=== PATIENT | female | born 1985 | race Caucasian/White ===

== ENCOUNTER 2017-01-19 16:10 | Emergency (ER) | payer SELFPAY ==
[~2017-01-19] VITALS: Ht 157.5 cm; Wt 98.4 kg
[2017-01-19 16:16] VITALS: BP 160/85
[2017-01-19] MEDS ORDERED: TRAM-29 PO (16:35)
[2017-01-19] MEDS ORDERED: CLIN-44 PO (16:35)
--- NOTE | 2017-01-19 16:36 | PHYS DOC ---
Past Medical History Past Medical History: Other Additional Past Medical Histor: tachycardia Past Surgical History: Tubal ligation, Other Additional Past Surgical Histo: cyst removal, D/C Alcohol Use: None Drug Use: None Adult General Chief Complaint Chief Complaint: DENTAL PROBLEM [facility] HPI Patient is a 31 year old female presents emergency department stating that she is having right upper dental pain. She states that she has been having pain for the last 2 weeks. She states that within the last 2 days has become unbearable she states that she's been taken ibuprofen for the pain and discomfort without relief. Patient states that she just went to the [facility] area and does not have a dentist. She denies fever, chills or any nausea or vomiting. Review of Systems Review of Systems Constitutional: Denies fever or chills [] Eyes: Denies change in visual acuity, redness, or eye pain [] HENT: Denies nasal congestion or sore throat. C/o dental pain Respiratory: Denies cough or shortness of breath [] Cardiovascular: No additional information not addressed in HPI [] GI: Denies abdominal pain, nausea, vomiting, bloody stools or diarrhea [] : Denies dysuria or hematuria [] Musculoskeletal: Denies back pain or joint pain [] Integument: Denies rash or skin lesions [] Neurologic: Denies headache, focal weakness or sensory changes [] Allergies Allergies Allergies Coded Allergies Type Severity Reaction Last Updated Verified amoxicillin Adverse Reaction Intermediate OTHER 01/19/17 Yes clavulanic acid Adverse Reaction Intermediate Nausea and Vomiting 01/19/17 Yes diclofenac Adverse Reaction Intermediate OTHER 01/19/17 Yes Physical Exam Physical Exam Constitutional: Well developed, well nourished, no acute distress, non-toxic appearance. [] HENT: Normocephalic, atraumatic, bilateral external ears normal, oropharynx moist, no oral exudates, nose normal. Patient with bilateral tympanic membranes appear to be bulging. Patient appears to have teeth that are decayed to the gumline. The gumline on the right appears to be very red and inflamed. Eyes: PERRLA, EOMI, conjunctiva normal, no discharge. [] Neck: Normal range of motion, no tenderness, supple, no stridor. [] Cardiovascular:Heart rate regular rhythm, no murmur [] Lungs & Thorax: Bilateral breath sounds clear to auscultation [] Skin: Warm, dry, no erythema, no rash. [] Back: No tenderness Extremities: No tenderness, no cyanosis, no clubbing, ROM intact, no edema. [] Neurologic: Alert and oriented X 3, normal motor function, normal sensory function, no focal deficits noted. [] Psychologic: Affect normal, judgement normal, mood normal. [] Current Patient Data Vital Signs Vital Signs Date Time Temp Pulse Resp B/P Pulse Ox O2 Delivery O2 Flow Rate FiO2 01/19/17 16:16 98.4 116 18 100 Room Air 98.4 EKG EKG [] Radiology/Procedures Radiology/Procedures [] Course & Med Decision Making Course & Med Decision Making Pertinent Labs and Imaging studies reviewed. (See chart for details) She will be provided with a dentist list. She'll be provided with Ultram to cover her for the next 3 days. She'll be placed on clindamycin 450 mg 2 times a day for the next 10 days. Recommended ibuprofen 800 mg every 8 hours with food stop taking few develop upset stomach. Patient was provided with signs and symptoms to return back to emergency department. Patient agrees with discharge instructions treatment regimens and follow-up recommendations. [] Dragon Disclaimer Dragon Disclaimer This electronic medical record was generated, in whole or in part, using a voice recognition dictation system. Departure Departure Impression: Primary Impression: Pain, dental Additional Impression: Dental abscess Disposition: 01 HOME, SELF-CARE Condition: STABLE Referrals: NO PCP (PCP) Patient Instructions: Dental Abscess, Dental Pain, [id number] Additional Instructions: You have been evaluated for dental pain. Follow-up with dentist as soon as possible. Medications as prescribed. Ultram will cause drowsiness do not take any be alert and oriented. Drink plenty of fluids. Ibuprofen 800 mg every 8 hours with food stop taking few develop an upset stomach. Return back to emergency prior signs and symptoms of become worse. Scripts Tramadol Hcl (Ultram)50 Mg Tablet1 Tab PO Q6HRS #10 TAB Prov:PARK JOHNSTON APRN 01/19/17 Clindamycin Hcl 150 Mg Capsule3 Cap PO TID 10 Days Prov:PARK JOHNSTON APRN 01/19/17 Problem Qualifiers PARK JOHNSTON APRN Jan 19, 2017 16:36
== END 2017-01-19 16:40 | disposition home or self-care (01) ==
LOC: ER 16:10
DX: K04.7 Periapical abscess without sinus (principal); Z88.1 Allergy status to other antibiotic agents; Z88.8 Allergy status to other drugs, medicaments and biological substances
CPT/HCPCS: 99283

== ENCOUNTER 2017-04-14 21:42 | Emergency (ER) | payer SELFPAY ==
[~2017-04-14] VITALS: Ht 157.5 cm; Wt 93.4 kg
[~2017-04-14 21:42] MED LIST: CLIN150C14 PO; TRAM-48 PO
[2017-04-14 21:50] VITALS: BP 176/99
[2017-04-14] MEDS ORDERED: CLIN300C8 PO (22:00)
[2017-04-14] MEDS ORDERED: TRAM50TA PO (22:01)
--- NOTE | 2017-04-14 22:01 | PHYS DOC ---
Past Medical History Past Medical History: Other Additional Past Medical Histor: tachycardia Past Surgical History: Tubal ligation, Other Additional Past Surgical Histo: cyst removal, D/C Alcohol Use: None Drug Use: None Adult General Chief Complaint Chief Complaint: DENTAL PROBLEM HPI HPI Patient is a 31 year old female presents to the emergency department with complaints of dental pain. Patient reports she's had a long-standing history of dental issues. She does not have a dentist. She reports no fever, no difficulty swallowing or phonation. Review of Systems Review of Systems Constitutional: Denies fever or chills [] Eyes: Denies change in visual acuity, redness, or eye pain [] HENT: Denies nasal congestion or sore throat, complaining of dental pain [] Respiratory: Denies cough or shortness of breath [] Cardiovascular: No additional information not addressed in HPI [] GI: Denies abdominal pain, nausea, vomiting, bloody stools or diarrhea [] : Denies dysuria or hematuria [] Musculoskeletal: Denies back pain or joint pain [] Integument: Denies rash or skin lesions [] Neurologic: Denies headache, focal weakness or sensory changes [] Endocrine: Denies polyuria or polydipsia [] Allergies Allergies Allergies Coded Allergies Type Severity Reaction Last Updated Verified amoxicillin Adverse Reaction Intermediate OTHER 01/19/17 Yes clavulanic acid Adverse Reaction Intermediate Nausea and Vomiting 01/19/17 Yes diclofenac Adverse Reaction Intermediate OTHER 01/19/17 Yes Physical Exam Physical Exam Constitutional: Well developed, well nourished, no acute distress, non-toxic appearance. [] HENT: Normocephalic, atraumatic, bilateral external ears normal, oropharynx moist, no oral exudates, dental caries throughout. Right upper gingiva without erythema and swelling, no pointing. Eyes: PERRLA, EOMI, conjunctiva normal, no discharge. [] Neck: Normal range of motion, no tenderness, supple, no stridor. [] Cardiovascular:Heart rate regular rhythm, no murmur [] Lungs & Thorax: Bilateral breath sounds clear to auscultation [] Skin: Warm, dry, no erythema, no rash. [] Neurologic: Alert and oriented X 3, normal motor function, normal sensory function, no focal deficits noted. [] [] EKG EKG [] Radiology/Procedures Radiology/Procedures [] Course & Med Decision Making Course & Med Decision Making Pertinent Labs and Imaging studies reviewed. (See chart for details) [] Dragon Disclaimer Dragon Disclaimer This electronic medical record was generated, in whole or in part, using a voice recognition dictation system. Departure Departure Impression: Primary Impression: Dental abscess Additional Impression: Pain, dental Disposition: 01 HOME, SELF-CARE Condition: STABLE Referrals: NO PCP (PCP) Patient Instructions: Dental Abscess Scripts Tramadol Hcl (TRAMADOL HCL) 50 Mg Tablet 1 TAB PO PRN Q6HRS Y for PAIN, #12 TAB Prov: CLEO TEJEDA APRN 04/14/17 Clindamycin Hcl (CLINDAMYCIN HCL) 300 Mg Capsule 1 CAP PO TID, #30 CAP Prov: CLEO TEJEDA APRN 04/14/17 Problem Qualifiers CLEO TEJEDA APRN Apr 14, 2017 22:01
== END 2017-04-14 22:10 | disposition home or self-care (01) ==
LOC: ER 21:42
DX: K04.7 Periapical abscess without sinus (principal); Z88.1 Allergy status to other antibiotic agents; Z88.8 Allergy status to other drugs, medicaments and biological substances
CPT/HCPCS: 99283

== ENCOUNTER 2017-07-24 20:53 | Emergency (ER) | payer SELFPAY ==
[~2017-07-24] VITALS: Ht 157.5 cm; Wt 95.3 kg
[~2017-07-24 20:53] MED LIST changes: +CLIN300C8 PO; +TRAM50TA PO
[2017-07-24 20:55] VITALS: BP 148/100
[2017-07-24] MEDS ORDERED: SULF1TAB24 PO (21:36)
--- NOTE | 2017-07-24 21:36 | PHYS DOC ---
Past Medical History Past Medical History: Anxiety, Bipolar, Other Additional Past Medical Histor: tachycardia , PTSD, RLS, PANIC DISORDER Past Surgical History: Tubal ligation, Other Additional Past Surgical Histo: cyst removal, D/C Alcohol Use: None Drug Use: None Adult General Chief Complaint Chief Complaint: ABSCESS HPI HPI Patient is a 31 year old female presents to the emergency department stating that she's had a history of pilonidal cyst when she was a teenager. She states that she has an area just below where her incision was that is red very tender to touch. She states that it developed yesterday. Patient denies any drainage or discharge coming from the site. She states her tetanus immunization is not up -to-date. She states she's been taken Tylenol and ibuprofen for the pain and discomfort with minimal relief.] Review of Systems Review of Systems Constitutional: Denies fever or chills [] Eyes: Denies change in visual acuity, redness, or eye pain [] HENT: Denies nasal congestion or sore throat [] Respiratory: Denies cough or shortness of breath [] Cardiovascular: No additional information not addressed in HPI [] GI: Denies abdominal pain, nausea, vomiting, bloody stools or diarrhea [] : Denies dysuria or hematuria [] Musculoskeletal: Denies back pain or joint pain [] Integument: Denies rash or skin lesions. Complains of cyst in the buttocks area. Neurologic: Denies headache, focal weakness or sensory changes [] Endocrine: Denies polyuria or polydipsia [] Allergies Allergies Allergies Coded Allergies Type Severity Reaction Last Updated Verified amoxicillin Adverse Reaction Intermediate OTHER 01/19/17 Yes clavulanic acid Adverse Reaction Intermediate Nausea and Vomiting 01/19/17 Yes diclofenac Adverse Reaction Intermediate OTHER 01/19/17 Yes Physical Exam Physical Exam Constitutional: Well developed, well nourished, no acute distress, non-toxic appearance. [] HENT: Normocephalic, atraumatic, bilateral external ears normal, oropharynx moist, no oral exudates, nose normal. [] Eyes: PERRLA, EOMI, conjunctiva normal, no discharge. [] Neck: Normal range of motion, no tenderness, supple, no stridor. [] Cardiovascular: Patient pink warm and dry Lungs & Thorax: No respiratory distress noted Skin: Warm, dry, no erythema, no rash. Patient with redness noted at the base of the sacral area no drainage or discharge noted. The area that appears to be tender to touch. The area appears to be firm. Extremities: No tenderness, no cyanosis, no clubbing, ROM intact, no edema. [] Neurologic: Alert and oriented X 3, normal motor function, normal sensory function, no focal deficits noted. [] Psychologic: Affect normal, judgement normal, mood normal. [] Current Patient Data Vital Signs Vital Signs Date Time Temp Pulse Resp B/P (MAP) Pulse Ox O2 Delivery O2 Flow Rate FiO2 07/24/17 20:55 98.1 100 18 100 Room Air 98.1 EKG EKG [] Radiology/Procedures Radiology/Procedures [] Course & Med Decision Making Course & Med Decision Making Pertinent Labs and Imaging studies reviewed. (See chart for details) Patient will be updated with a tetanus immunization here in the emergency department. She will also be provided with Ultram here in the emergency department. She'll be provided with a prescription for Bactrim with recommendations for warm moist packs to the area several times a day. Recommended following up with a primary care physician in next 3-5 days. Patient agrees with discharge instructions, treatment regimens and follow-up recommendations. Signs and symptoms to return back to emergency department and been provided to the patient. Dragon Disclaimer Dragon Disclaimer This electronic medical record was generated, in whole or in part, using a voice recognition dictation system. Departure Departure Impression: Primary Impression: Abscess Disposition: 01 HOME, SELF-CARE Condition: STABLE Referrals: NO PCP (PCP) Patient Instructions: Abscess, [id number] Additional Instructions: Keep the area clean and dry. Activity as tolerated. Warm moist packs to the area 5-6 times a day. Tylenol or ibuprofen for pain and discomfort. Ibuprofen 800 mg every 8 hours. Take this medication with food to prevent stomach upset. If he did develop an upset stomach please stopped taking. Medication as prescribed. Follow-up to primary care physician next 3-5 days. Return back to emergency prior signs symptoms of become worse. Scripts Sulfamethoxazole/Trimethoprim (BACTRIM DS TABLET) 1 Each Tablet 1 TAB PO BID, #20 TAB Prov: PARK JOHNSTON APRN 07/24/17 PARK JOHNSTON APRN Jul 24, 2017 21:36
[2017-07-24] MEDS ORDERED: traMADol 50 MG TABLET PO ONE (21:45)
[2017-07-24] MEDS ORDERED: DIPHTH,PERTUSS(ACELL),TET TOX 0.5 ML DISP.SYRIN. VAX IM ONE (22:00)
== END 2017-07-24 21:44 | disposition home or self-care (01) ==
LOC: ER 20:53
DX: L02.31 Cutaneous abscess of buttock (principal); G25.81 Restless legs syndrome; F43.10 Post-traumatic stress disorder, unspecified; F41.9 Anxiety disorder, unspecified; F31.9 Bipolar disorder, unspecified; Z88.1 Allergy status to other antibiotic agents; Z88.8 Allergy status to other drugs, medicaments and biological substances
CPT/HCPCS: 90471; 90715; 99283-25

== ENCOUNTER 2017-08-18 18:10 | Emergency (ER) | payer SELFPAY ==
[~2017-08-18] VITALS: Ht 157.5 cm; Wt 92.1 kg
[~2017-08-18 18:10] MED LIST changes: +SULF1TAB24 PO
[2017-08-18 18:45] VITALS: BP 137/93
[2017-08-18] MEDS ORDERED: AZIT250T6 PO (19:27)
--- NOTE | 2017-08-18 19:27 | PHYS DOC ---
Past Medical History Past Medical History: Anxiety, Bipolar, Other Additional Past Medical Histor: tachycardia , PTSD, RLS, PANIC DISORDER Past Surgical History: Tubal ligation, Other Additional Past Surgical Histo: cyst removal, D/C Alcohol Use: None Drug Use: None Adult General Chief Complaint Chief Complaint: MULTIPLE COMPLAINTS HPI HPI Patient is a 31 year old female who presents ambulatory to the ED. She is complaining of feverish feeling, cough, aches and pains, pain across her anterior and posterior chest. This is been going on for 2 days. She has used her albuterol and also has taken DayQuil and ibuprofen and Tylenol with little relief. She took ibuprofen 800 mg that 4:00 today. Patient has had a similar illness and was diagnosed with "bronchitis" in the past. She has a history of bronchitis but not a history of asthma or COPD. Patient states she has a history of bipolar and PTSD. She is seen at [facility]. She does not have a primary care physician, only mental health. Patient denies vomiting. Denies possibility of . Review of Systems Review of Systems Constitutional: She has felt feverish and hot and cold Eyes: Denies change in visual acuity, redness, or eye pain [] HENT: Denies nasal congestion or sore throat [] Respiratory: As in history of present illness Cardiovascular: She has had pain across her anterior chest that sounds pleuritic in noncardiac GI: Denies abdominal pain, nausea, vomiting, bloody stools or diarrhea [] : Denies dysuria or hematuria [] Musculoskeletal: Denies back pain or joint pain [] Integument: Denies rash or skin lesions [] Neurologic: Denies headache, focal weakness or sensory changes [] All other systems were reviewed and found to be within normal limits, except as documented in this note. Current Medications Current Medications Current Medications Medications (Trade) Dose Ordered Sig/Shashi Start Time Stop Time Status Last Admin Dose Admin Acetaminophen/ Hydrocodone Bitart (Lortab 5/325) 1 tab 1X ONCE 08/18/17 19:30 08/18/17 19:31 DC 08/18/17 19:30 1 TAB Allergies Allergies Allergies Coded Allergies Type Severity Reaction Last Updated Verified amoxicillin Adverse Reaction Intermediate OTHER 01/19/17 Yes clavulanic acid Adverse Reaction Intermediate Nausea and Vomiting 01/19/17 Yes diclofenac Adverse Reaction Intermediate OTHER 4/15/17 Yes Physical Exam Physical Exam Constitutional: Well developed, well nourished, no acute distress, non-toxic appearance. Temp 99.0. Alert, ambulatory, mentating normally, she does have a cough. HENT: Normocephalic, atraumatic, bilateral external ears normal, nose normal. [ ] Eyes: conjunctiva normal, no discharge. [] Neck: Normal range of motion, no stridor. [] Cardiovascular:Heart rate regular rhythm, no murmur [] Lungs & Thorax: Bilateral breath sounds clear to auscultation , no wheezes, good air movement throughout bilaterally Skin: Warm, dry, no erythema, no rash. [] Extremities: No tenderness, no cyanosis, no clubbing, ROM intact, no edema. [] Neurologic: Alert and oriented X 3, normal motor function, no focal deficits noted. [] Current Patient Data Vital Signs Vital Signs Date Time Temp Pulse Resp B/P (MAP) Pulse Ox O2 Delivery O2 Flow Rate FiO2 08/18/17 19:30 18 97 Room Air 08/18/17 18:45 99.0 107 99.0 EKG EKG [] Radiology/Procedures Radiology/Procedures [] Course & Med Decision Making Course & Med Decision Making Pertinent Labs and Imaging studies reviewed. (See chart for details) 31-year-old female with 2 days of feverish, cough, pleuritic sounding chest pain , aches and pains. Her lungs are clear without wheezing and her vital signs are stable. Patient does not have primary care physician and does not have access to easy follow-up. For this reason, we will treat her with a Z-Apollo. She states she can get that filled tomorrow. See instructions for plan. [] Dragon Disclaimer Dragon Disclaimer This electronic medical record was generated, in whole or in part, using a voice recognition dictation system. Departure Departure Impression: Primary Impression: Bronchitis Additional Impression: Pleuritic chest pain Disposition: 01 HOME, SELF-CARE Condition: STABLE Referrals: NO PCP (PCP) Patient Instructions: Acute Bronchitis, [id number] Additional Instructions: Ibuprofen 800 mg every 6-8 hours for fever and pain. Plenty of fluids. Z-Apollo, antibiotics. Get those started as soon as you can. If you get short of breath or feeling worse, return to emergency. Scripts Azithromycin (AZITHROMYCIN TABLET) 250 Mg Tablet 1 PKG PO UD for bronchitis, #6 TAB Prov: RICK SMITH MD 08/18/17 Problem Qualifiers RICK SMITH MD Aug 18, 2017 19:27
[2017-08-18] MEDS ORDERED: HYDROcodone/APAP 5/325MG 1 TAB TABLET PO ONE (19:30)
== END 2017-08-18 19:36 | disposition home or self-care (01) ==
LOC: ER 18:10
DX: J40 Bronchitis, not specified as acute or chronic (principal); R07.81 Pleurodynia; F41.9 Anxiety disorder, unspecified; F31.9 Bipolar disorder, unspecified; F43.10 Post-traumatic stress disorder, unspecified; Z88.1 Allergy status to other antibiotic agents
CPT/HCPCS: 99283

== ENCOUNTER 2017-08-24 15:00 | Emergency (ER) | payer SELFPAY ==
[~2017-08-24] VITALS: Ht 157.5 cm; Wt 92.1 kg
[~2017-08-24 15:00] MED LIST changes: +AZIT250T6 PO
[2017-08-24 15:19] VITALS: BP 137/68
[2017-08-24] MEDS ORDERED: METH4TAB2 PO (15:26)
[2017-08-24] MEDS ORDERED: CYCL10TA2 PO (15:26)
--- NOTE | 2017-08-24 15:26 | PHYS DOC ---
Past Medical History Past Medical History: Anxiety, Bipolar, Other Additional Past Medical Histor: tachycardia , PTSD, RLS, PANIC DISORDER Past Surgical History: Tubal ligation, Other Additional Past Surgical Histo: cyst removal, D/C Alcohol Use: None Drug Use: None Adult General Chief Complaint Chief Complaint: LOWER BACK PAIN OR INJURY HPI HPI Patient is a 31 year old female who presents with female with history of bulging disks who presents today with mild to moderate right low back pain radiating into her buttocks that began today after she slept wrong on a couch last night. Patient denies any loss of bowel bladder function. Denies any pain radiating to bilateral lower extremities. Denies any numbness to her buttocks. Review of Systems Review of Systems Constitutional: Denies fever or chills [] GI: Denies abdominal pain, nausea, vomiting, bloody stools or diarrhea [] : Denies dysuria or hematuria [] Musculoskeletal: Right low back pain radiating to the buttocks. Integument: Denies rash or skin lesions [] Neurologic: Denies headache, focal weakness or sensory changes [] All other systems were reviewed and found to be within normal limits, except as documented in this note. Allergies Allergies Allergies Coded Allergies Type Severity Reaction Last Updated Verified amoxicillin Adverse Reaction Intermediate OTHER 01/19/17 Yes clavulanic acid Adverse Reaction Intermediate Nausea and Vomiting 01/19/17 Yes diclofenac Adverse Reaction Intermediate OTHER 01/19/17 Yes Physical Exam Physical Exam Constitutional: Well developed, well nourished, no acute distress, non-toxic appearance. [] Skin: Warm, dry, no erythema, no rash. [] Back: Diffuse paraspinal muscle tenderness to the right lumbar spine worse on the right SI joint tenderness, no CVA tenderness. [] Extremities: No tenderness, no cyanosis, no clubbing, ROM intact, no edema. [] Neurologic: Alert and oriented X 3, normal motor function, normal sensory function, no focal deficits noted. [] Psychologic: Affect normal, judgement normal, mood normal. [] EKG EKG [] Radiology/Procedures Radiology/Procedures [] Course & Med Decision Making Course & Med Decision Making Pertinent Labs and Imaging studies reviewed. (See chart for details) Patient is in the ED with low back pain. She has history of chronic bulging disks. No known injury today. No cauda equina syndrome symptoms. Patient will be discharged with Medrol Dosepak. Cyclobenzaprine, and provided a pain clinic for follow-up. Dragon Disclaimer Dragon Disclaimer This electronic medical record was generated, in whole or in part, using a voice recognition dictation system. Departure Departure Impression: Primary Impression: Low back pain Disposition: HOME, SELF-CARE Condition: STABLE Referrals: NO PCP (PCP) JOHN COX MD follow up on Saturday Patient Instructions: Back Pain, Adult Additional Instructions: You were seen for low back pain. We highly recommend you contact the pain clinic provided on Saturday and follow-up. You can apply heat or ice to the low back. Scripts Methylprednisolone (MEDROL) 4 Mg Tab.ds.pk 1 PKG PO UD, #1 PKG Prov: LISA GUAMAN SHANTA 08/24/17 Cyclobenzaprine Hcl (CYCLOBENZAPRINE HCL) 10 Mg Tablet 1 TAB PO TID, #30 TAB Prov: LISA GUAMAN SHANTA 08/24/17 Problem Qualifiers Primary Impression: Low back pain Chronicity: acute Back pain laterality: right Sciatica presence: without sciatica Qualified Codes: M54.5 - Low back pain LISA GUAMAN SHANTA Aug 24, 2017 15:26
[2017-08-24] MEDS ORDERED: CYCLOBENZAPRINE 10 MG TABLET. PO ONE (15:30)
[2017-08-24] MEDS ORDERED: HYDROcodone/APAP 5/325MG 1 TAB TABLET PO ONE (15:30)
== END 2017-08-24 15:43 | disposition home or self-care (01) ==
LOC: ER 15:00
DX: M54.5 Low back pain (principal); F43.10 Post-traumatic stress disorder, unspecified; F31.9 Bipolar disorder, unspecified; Z98.51 Tubal ligation status
CPT/HCPCS: 99283

== ENCOUNTER 2017-08-31 21:47 | Emergency (ER) | payer SELFPAY ==
[~2017-08-31] VITALS: Ht 157.5 cm; Wt 92.1 kg
[~2017-08-31 21:47] MED LIST changes: +CYCL10TA2 PO; +METH4TAB2 PO
[2017-08-31] MEDS ORDERED: AZIT250T6 PO (22:02)
[2017-08-31] MEDS ORDERED: BENZ100C PO (22:02)
--- NOTE | 2017-08-31 22:03 | PHYS DOC ---
Past Medical History Past Medical History: Anxiety, Bipolar, Other Additional Past Medical Histor: tachycardia , PTSD, RLS, PANIC DISORDER Past Surgical History: Tubal ligation, Other Additional Past Surgical Histo: cyst removal, D/C Alcohol Use: None Drug Use: None Adult General Chief Complaint Chief Complaint: Congestion HPI HPI Patient is a 31 year old female presents the ED complaining of cough 2 weeks. Patient states she was diagnosed with bronchitis last week but lost her prescription and was unable to get her azithromycin. Complains of sore throat and rhinorrhea. Requesting another prescription of azithromycin. Denies headache , fever, nausea/vomiting, abdominal pain, chest pain or shortness of breath. Review of Systems Review of Systems Constitutional: Denies fever or chills [] Eyes: Denies change in visual acuity, redness, or eye pain [] HENT: Complains of rhinorrhea and sore throat[] Respiratory: Complains of cough. Denies shortness of breath [] Cardiovascular: No additional information not addressed in HPI [] GI: Denies abdominal pain, nausea, vomiting, bloody stools or diarrhea [] : Denies dysuria or hematuria [] Musculoskeletal: Denies back pain or joint pain [] Integument: Denies rash or skin lesions [] Neurologic: Denies headache, focal weakness or sensory changes [] Endocrine: Denies polyuria or polydipsia [] All other systems were reviewed and found to be within normal limits, except as documented in this note. Current Medications Current Medications Current Medications Medications (Trade) Dose Ordered Sig/Shashi Start Time Stop Time Status Last Admin Dose Admin Ceftriaxone Sodium 50 ml @ 100 mls/hr 1X ONCE 08/31/17 23:30 08/31/17 23:55 DC 08/31/17 23:25 100 MLS/HR Sodium Chloride 1,000 ml @ 1,000 mls/hr 1X ONCE 08/31/17 22:30 08/31/17 23:29 DC 08/31/17 22:36 1,000 MLS/HR Tramadol HCl (Ultram) 50 mg 1X ONCE 08/31/17 23:30 08/31/17 23:31 DC 08/31/17 23:25 50 MG Allergies Allergies Allergies Coded Allergies Type Severity Reaction Last Updated Verified amoxicillin Adverse Reaction Intermediate OTHER 01/19/17 Yes clavulanic acid Adverse Reaction Intermediate Nausea and Vomiting 01/19/17 Yes diclofenac Adverse Reaction Intermediate OTHER 01/19/17 Yes Physical Exam Physical Exam Constitutional: Well developed, well nourished, no acute distress, non-toxic appearance. [] HENT: Normocephalic, atraumatic, bilateral external ears normal, oropharynx moist, no oral exudates, MILD PHARYNGEAL ERYTHEMA. nose normal. [] Eyes: PERRLA, EOMI, conjunctiva normal, no discharge. [] Neck: Normal range of motion, no tenderness, supple, no stridor. [] Cardiovascular:Heart rate regular rhythm, no murmur [] Lungs & Thorax: Bilateral breath sounds clear to auscultation [] Abdomen: Bowel sounds normal, soft, no tenderness, no masses, no pulsatile masses. [] Skin: Warm, dry, no erythema, no rash. [] Back: No tenderness, no CVA tenderness. [] Extremities: No tenderness, no cyanosis, no clubbing, ROM intact, no edema. [] Neurologic: Alert and oriented X 3, normal motor function, normal sensory function, no focal deficits noted. [] Psychologic: Affect normal, judgement normal, mood normal. [] Current Patient Data Vital Signs Vital Signs Date Time Temp Pulse Resp B/P (MAP) Pulse Ox O2 Delivery O2 Flow Rate FiO2 08/31/17 23:43 88 17 124/74 (91) 98 Room Air 08/31/17 21:50 99.0 99.0 Lab Values Laboratory Tests Test 08/31/17 22:18 08/31/17 22:19 08/31/17 22:25 Urine Collection Type Unknown Urine Color Yellow Urine Clarity Cloudy Urine pH 7.0 Urine Specific [place] 1.025 Urine Protein Negative mg/dL (NEG-TRACE) Urine Glucose (UA) Negative mg/dL (NEG) Urine Ketones (Stick) Negative mg/dL (NEG) Urine Blood Negative (NEG) Urine Nitrite Negative (NEG) Urine Bilirubin Negative (NEG) Urine Urobilinogen Dipstick 1.0 mg/dL (0.2 mg/dL) Urine Leukocyte Esterase Trace (NEG) Urine RBC Occ /HPF (0-2) Urine WBC Occ /HPF (0-4) Urine Squamous Epithelial Cells Many /LPF Urine Bacteria Many /HPF (0-FEW) Urine Mucus Mod /LPF POC Urine HCG, Qualitative Hcg negative (Negative) White Blood Count 16.0 x10^3/uL (4.0-11.0) H Red Blood Count 4.71 x10^6/uL (3.50-5.40) Hemoglobin 14.2 g/dL (12.0-15.5) Hematocrit 41.4 % (36.0-47.0) Mean Corpuscular Volume 88 fL (79-100) Mean Corpuscular Hemoglobin 30 pg (25-35) Mean Corpuscular Hemoglobin Concent 34 g/dL (31-37) Red Cell Distribution Width 13.4 % (11.5-14.5) Platelet Count 293 x10^3/uL (140-400) D-Dimer (Lesley) 0.27 ug/mlFEU (0.00-0.50) Sodium Level 137 mmol/L (136-145) Potassium Level 3.8 mmol/L (3.5-5.1) Chloride Level 103 mmol/L (98-107) Carbon Dioxide Level 22 mmol/L (21-32) Anion Gap 12 (6-14) Blood Urea Nitrogen 13 mg/dL (7-20) Creatinine 0.9 mg/dL (0.6-1.0) Estimated GFR (Cockcroft-Gault) 72.1 BUN/Creatinine Ratio 14 (6-20) Glucose Level 121 mg/dL (70-99) H Calcium Level 9.0 mg/dL (8.5-10.1) Total Bilirubin 0.3 mg/dL (0.2-1.0) Aspartate Amino Transferase (AST) 11 U/L (15-37) L Alanine Aminotransferase (ALT) 16 U/L (14-59) Alkaline Phosphatase 87 U/L (46-116) Total Protein 7.2 g/dL (6.4-8.2) Albumin 3.5 g/dL (3.4-5.0) Albumin/Globulin Ratio 0.9 (1.0-1.7) L Laboratory Tests 08/31/17 22:25 Laboratory Tests 08/31/17 22:25 EKG EKG [] Radiology/Procedures Radiology/Procedures [] Course & Med Decision Making Course & Med Decision Making Pertinent Labs and Imaging studies reviewed. (See chart for details) []Patient found to be tachycardic on exam. History of tachycardia. Obtained labs and imaging. Negative D-dimer. 1 liter of fluids and Rocephin given in ED. Patient improved. HR into 90's. States she is feeling much better. Will discharge with azithromycin and cough suppressant. Recommended OTC medications. Discussed follow-up in 1-2 days. Provided contact information/education. Discussed reasons to return to the ED. Patient understands and agrees with plan. Dragon Disclaimer Dragon Disclaimer This electronic medical record was generated, in whole or in part, using a voice recognition dictation system. Departure Departure Impression: Primary Impression: Acute bronchitis Disposition: 01 HOME, SELF-CARE Condition: STABLE Referrals: NO PCP (PCP) JANELL RAMSEY MD Patient Instructions: Acute Bronchitis Scripts Tramadol Hcl (TRAMADOL HCL) 50 Mg Tablet 1 TAB PO PRN Q6HRS, #12 TAB Prov: ROBBY AMEZCUA 08/31/17 Benzonatate (TESSALON PERLE) 100 Mg Capsule 1 CAP PO TID, #21 CAP Prov: ROBBY AMEZCUA 08/31/17 Azithromycin (AZITHROMYCIN TABLET) 250 Mg Tablet 1 PKG PO UD, #6 TAB Prov: ROBBY AMEZCUA 08/31/17 ROBBY AMEZCUA Aug 31, 2017 22:03
[2017-08-31 22:28] LABS: BILIRUBIN,URINE NEGATIVE (NEG); GLUCOSE,URINE NEGATIVE (NEG); NITRITE,URINE NEGATIVE (NEG); PROTEIN,URINE NEGATIVE (NEG-TRACE)
[2017-08-31 22:30] LABS: HEMATOCRIT 41.4 % (36.0-47.0); HEMOGLOBIN 14.2 g/dL (12.0-15.5); RED BLOOD COUNT 4.71 x10^6/uL (3.50-5.40); RED CELL DISTRIBUTION WIDTH 13.4 % (11.5-14.5)
[2017-08-31] MEDS ORDERED: IV NORMAL SALINE 1000ML BAG 1,000 ML IV ONE (22:30)
[2017-08-31 22:36] LABS: RBC,URINE OCC /HPF (0-2); WBC,URINE OCC /HPF (0-4)
[2017-08-31 22:37] LABS: BACTERIA,URINE MANY /HPF (0-FEW); SQUAMOUS EPITHELIAL CELL,UR MANY /LPF
[2017-08-31 22:40] LABS: CREATININE 0.9 mg/dL (0.6-1.0); GFR 72.1; POTASSIUM 3.8 mmol/L (3.5-5.1)
[2017-08-31 22:45] LABS: ALBUMIN 3.5 g/dL (3.4-5.0); ALBUMIN/GLOBULIN RATIO 0.9 (1.0-1.7); TOTAL BILIRUBIN 0.3 mg/dL (0.2-1.0); TOTAL PROTEIN 7.2 g/dL (6.4-8.2)
[2017-08-31] MEDS ORDERED: TRAM50TA PO (23:00)
[2017-08-31] MEDS ORDERED: traMADol 50 MG TABLET PO ONE (23:30)
[2017-08-31 23:43] VITALS: BP 124/74
--- NOTE | 2017-09-01 07:37 | RAD ---
Two view chest History:pneumonia, shortness of air. PA and lateral views of the chest are submitted. Comparison: None Findings: There is no dependent pleural fluid or pneumothorax. There is no lobar consolidation. There is small fairly opaque nodular opacity mid to superior left hemithorax. The pericardial cardiac silhouette is within normal limits in size. Impression: 1. No significant infiltrate is identified by radiographs. 2. There is likely small granuloma of the mid to superior left hemithorax.
== END 2017-08-31 23:54 | disposition home or self-care (01) ==
LOC: ER 21:47
DX: J20.9 Acute bronchitis, unspecified (principal); F31.9 Bipolar disorder, unspecified; F43.10 Post-traumatic stress disorder, unspecified; Z88.1 Allergy status to other antibiotic agents; Z88.8 Allergy status to other drugs, medicaments and biological substances
CPT/HCPCS: 36415; 71020; 80053; 81001; 81025; 85027; 85379; 96361; 96365; 99285; J0690; J7030

== ENCOUNTER 2017-10-23 08:51 | Emergency (ER) | payer SELFPAY ==
[2017-10-23 09:06] LABS: URINE HCG POC HCG NEGATIVE (Negative)
[2017-10-23] MEDS: PROCHLORPERAZINE 10 MG/2 ML VIAL. IV (10:08)
[2017-10-23] MEDS: IV NORMAL SALINE 1000ML BAG 1,000 ML IV (10:08)
[2017-10-23] MEDS: diphenhydrAMINE 50 MG/ML VIAL IVP (10:09)
[2017-10-23] MEDS: KETOROLAC 30 MG/ML INJ. IV (10:09)
[2017-10-23] MEDS: methylPREDNISolone SOD SUCC PF 125 MG/2 ML VIAL. IV (11:16)
[2017-10-23] MEDS: fentaNYL PF VIAL 100 MCG/2 ML VIAL IV (11:17)
[2017-10-23 12:16] LABS: BILIRUBIN,URINE NEGATIVE (NEG); CLARITY,URINE CLEAR; COLOR,URINE YELLOW; GLUCOSE,URINE NEGATIVE (NEG)
[2017-10-23 12:17] LABS: BACTERIA,URINE 0 /HPF (0-FEW); NITRITE,URINE NEGATIVE (NEG); PROTEIN,URINE NEGATIVE (NEG-TRACE); RBC,URINE 0 /HPF (0-2); SQUAMOUS EPITHELIAL CELL,UR FEW /LPF; UROBILINOGEN,URINE 0.2 mg/dL (0.2 mg/dL); WBC,URINE 0 /HPF (0-4)
== END 2017-10-23 12:45 | disposition home or self-care (01) ==
LOC: ER 08:51
DX: G43.909 Migraine, unspecified, not intractable, without status migrainosus (principal); F31.9 Bipolar disorder, unspecified; I10 Essential (primary) hypertension; F43.10 Post-traumatic stress disorder, unspecified; G25.81 Restless legs syndrome; F41.0 Panic disorder [episodic paroxysmal anxiety]; Z88.1 Allergy status to other antibiotic agents; Z88.8 Allergy status to other drugs, medicaments and biological substances; Z88.6 Allergy status to analgesic agent
CPT/HCPCS: 81001; 81025; 96361; 96374; 96375; 99284-25; J0780; J1200; J1885; J2930; J3010; J7030

== ENCOUNTER 2017-11-07 21:23 | Emergency (ER) | payer SELFPAY ==
[2017-11-07] MEDS: HYDROcodone/APAP 5/325MG 1 TAB TABLET PO ×2 (22:44)
== END 2017-11-07 22:47 | disposition home or self-care (01) ==
LOC: ER 21:23
DX: M72.2 Plantar fascial fibromatosis (principal); Z88.1 Allergy status to other antibiotic agents; Z88.8 Allergy status to other drugs, medicaments and biological substances; Z88.6 Allergy status to analgesic agent
CPT/HCPCS: 73630; 99284

== ENCOUNTER 2017-11-10 18:40 | Emergency (ER) | payer SELFPAY ==
[2017-11-10] MEDS: DEXAMETHASONE SOD PHOS 4 MG/ML VIAL IV ×2 (19:59)
[2017-11-10] MEDS: diphenhydrAMINE 50 MG/ML VIAL IVP ×2 (20:01)
[2017-11-10] MEDS: KETOROLAC 15 MG/ML VIAL. IV ×2 (20:04)
[2017-11-10] MEDS: IV NORMAL SALINE 1000ML BAG 1,000 ML IV ×2 (20:06)
[2017-11-10] MEDS: PROMETHAZINE 12.5 MG in IV DEXTROSE 5% 50 ML IV (20:08)
[2017-11-10] MEDS ORDERED: LORazepam 1 MG TABLET ×2 (21:42)
[2017-11-10] MEDS: LORazepam 1 MG TABLET PO ×2 (21:44)
== END 2017-11-10 21:42 | disposition home or self-care (01) ==
LOC: ER 18:40
DX: G43.909 Migraine, unspecified, not intractable, without status migrainosus (principal); E11.9 Type 2 diabetes mellitus without complications; F43.10 Post-traumatic stress disorder, unspecified
CPT/HCPCS: 96365; 96366; 96375; 99285-25; J1100; J1200; J1885; J2550; J7030

== ENCOUNTER 2017-11-18 10:55 | Emergency (ER) | payer SELFPAY ==
[2017-11-18 11:16] LABS: BILIRUBIN,URINE NEGATIVE (NEG); CLARITY,URINE CLOUDY; COLOR,URINE YELLOW; GLUCOSE,URINE NEGATIVE (NEG); NITRITE,URINE NEGATIVE (NEG); PROTEIN,URINE NEGATIVE (NEG-TRACE); UROBILINOGEN,URINE 0.2 mg/dL (0.2 mg/dL)
[2017-11-18 11:30] LABS: SQUAMOUS EPITHELIAL CELL,UR MANY /LPF
[2017-11-18 11:31] LABS: BACTERIA,URINE 0 /HPF (0-FEW); RBC,URINE 0 /HPF (0-2); WBC,URINE 0 /HPF (0-4)
[2017-11-18] MEDS: HYDROcodone/APAP 5/325MG 1 TAB TABLET PO ×2 (12:18)
== END 2017-11-18 12:22 | disposition home or self-care (01) ==
LOC: ER 10:55
DX: M54.5 Low back pain (principal); R35.0 Frequency of micturition; F41.0 Panic disorder [episodic paroxysmal anxiety]; F43.10 Post-traumatic stress disorder, unspecified; F31.9 Bipolar disorder, unspecified; G43.909 Migraine, unspecified, not intractable, without status migrainosus; Z88.1 Allergy status to other antibiotic agents; Z88.8 Allergy status to other drugs, medicaments and biological substances
CPT/HCPCS: 81001; 99283

== ENCOUNTER 2017-12-04 10:44 | Emergency (ER) | payer SELFPAY ==
[2017-12-04 12:22] LABS: ADD MAN DIFF? NO
[2017-12-04 12:29] LABS: BASO % 0 % (0-3); EOS # 0.1 x10^3/uL (0.0-0.7); EOS % 1 % (0-3); HEMATOCRIT 39.6 % (36.0-47.0); HEMOGLOBIN 13.7 g/dL (12.0-15.5); LYMPH # 2.2 x10^3/uL (1.0-4.8); LYMPH % 23 % (24-48); MEAN CORPUSCULAR HEMOGLOBIN 30 pg (25-35); MEAN CORPUSCULAR HGB CONC 35 g/dL (31-37); MEAN CORPUSCULAR VOLUME 87 fL (79-100); MONO # 0.6 x10^3/uL (0.0-1.1); MONO % 6 % (0-9); NEUT # 6.8 x10^3uL (1.8-7.7); NEUT % 70 % (31-73); PLATELET COUNT 353 x10^3/uL (140-400); RED BLOOD COUNT 4.56 x10^6/uL (3.50-5.40); RED CELL DISTRIBUTION WIDTH 13.5 % (11.5-14.5); WHITE BLOOD COUNT 9.7 x10^3/uL (4.0-11.0)
[2017-12-04] MEDS: ONDANSETRON PF 4 MG/2 ML VIAL. IV (12:34)
[2017-12-04 12:36] LABS: URINE HCG POC HCG NEGATIVE (Negative)
[2017-12-04] MEDS: IV NORMAL SALINE 1000ML BAG 1,000 ML IV (12:36)
[2017-12-04 12:38] LABS: ANION GAP 10 (6-14); BLOOD UREA NITROGEN 5 mg/dL (7-20); BUN/CREATININE RATIO 6 (6-20); CALCIUM 9.1 mg/dL (8.5-10.1); CARBON DIOXIDE 24 mmol/L (21-32); CHLORIDE 104 mmol/L (98-107); CREATININE 0.8 mg/dL (0.6-1.0); GFR 82.1; GLUCOSE 130 mg/dL (70-99); POTASSIUM 3.2 mmol/L (3.5-5.1); SODIUM 138 mmol/L (136-145)
[2017-12-04 12:40] LABS: BACTERIA,URINE FEW /HPF (0-FEW); BILIRUBIN,URINE NEGATIVE (NEG); CLARITY,URINE CLEAR; COLOR,URINE YELLOW; GLUCOSE,URINE NEGATIVE (NEG); NITRITE,URINE NEGATIVE (NEG); PROTEIN,URINE NEGATIVE (NEG-TRACE); RBC,URINE 0 /HPF (0-2); SQUAMOUS EPITHELIAL CELL,UR MANY /LPF; UROBILINOGEN,URINE 0.2 mg/dL (0.2 mg/dL); WBC,URINE 0 /HPF (0-4)
[2017-12-04 12:45] LABS: ALBUMIN 3.3 g/dL (3.4-5.0); ALBUMIN/GLOBULIN RATIO 0.9 (1.0-1.7); ALK PHOS 90 U/L (46-116); ALT (SGPT) 60 U/L (14-59); AST (SGOT) 53 U/L (15-37); TOTAL BILIRUBIN 0.2 mg/dL (0.2-1.0); TOTAL PROTEIN 6.9 g/dL (6.4-8.2)
[2017-12-04 13:00] LABS: BARBITURATES NEG (NEG); BENZODIAZEPINES NEG (NEG); CANNABINOIDS NEG (NEG); COCAINE NEG (NEG); METHADONE NEG (NEG); OPIATES NEG (NEG); PHENCYCLIDINE NEG (NEG)
[2017-12-04 13:01] LABS: AMPHETAMINE/METHAMPHETAMINE NEG (NEG); ETHANOL, URINE NEG (NEG)
[2017-12-04] MEDS: KETOROLAC 15 MG/ML VIAL. IV (13:22)
[2017-12-04] MEDS: DEXAMETHASONE SOD PHOS 4 MG/ML VIAL IV (13:23)
[2017-12-04] MEDS: MORPHINE SULFATE 2 MG/ML DISP.SYRIN. IV/SQ (13:24)
[2017-12-04] MEDS: POTASSIUM CHLORIDE 20 MEQ TABLET.ER. PO (14:25)
== END 2017-12-04 14:30 | disposition home or self-care (01) ==
LOC: ER 10:44
DX: R51 Headache (principal); G43.909 Migraine, unspecified, not intractable, without status migrainosus; F31.9 Bipolar disorder, unspecified; F41.9 Anxiety disorder, unspecified; Z88.1 Allergy status to other antibiotic agents; Z88.8 Allergy status to other drugs, medicaments and biological substances
CPT/HCPCS: 36415; 70450; 80053; 80307; 81001; 81025; 85025; 96361; 96374; 96375; 99285-25; J1100; J1885; J2060; J2270; J2405; J7030

== ENCOUNTER 2017-12-12 19:47 | Emergency (ER) | payer SELFPAY ==
[2017-12-12 20:04] LABS: URINE HCG POC HCG NEGATIVE (Negative)
[2017-12-12 20:28] LABS: ADD MAN DIFF? NO
[2017-12-12 20:30] LABS: BASO # 0.1 x10^3/uL (0.0-0.2); BASO % 1 % (0-3); EOS # 0.1 x10^3/uL (0.0-0.7); EOS % 1 % (0-3); HEMOGLOBIN 13.3 g/dL (12.0-15.5); LYMPH # 2.8 x10^3/uL (1.0-4.8); LYMPH % 28 % (24-48); MEAN CORPUSCULAR HEMOGLOBIN 30 pg (25-35); MEAN CORPUSCULAR HGB CONC 34 g/dL (31-37); MEAN CORPUSCULAR VOLUME 87 fL (79-100); MONO # 0.5 x10^3/uL (0.0-1.1); MONO % 5 % (0-9); NEUT # 6.4 x10^3uL (1.8-7.7); NEUT % 65 % (31-73); PLATELET COUNT 381 x10^3/uL (140-400); RED BLOOD COUNT 4.49 x10^6/uL (3.50-5.40); RED CELL DISTRIBUTION WIDTH 13.4 % (11.5-14.5); WHITE BLOOD COUNT 9.9 x10^3/uL (4.0-11.0)
[2017-12-12 20:32] LABS: BILIRUBIN,URINE NEGATIVE (NEG); CLARITY,URINE CLEAR; COLOR,URINE YELLOW; GLUCOSE,URINE NEGATIVE (NEG); NITRITE,URINE NEGATIVE (NEG); PROTEIN,URINE NEGATIVE (NEG-TRACE); UROBILINOGEN,URINE 0.2 mg/dL (0.2 mg/dL)
[2017-12-12 20:38] LABS: ANION GAP 11 (6-14); BACTERIA,URINE 0 /HPF (0-FEW); BLOOD UREA NITROGEN 8 mg/dL (7-20); BUN/CREATININE RATIO 11 (6-20); CALCIUM 8.9 mg/dL (8.5-10.1); CARBON DIOXIDE 25 mmol/L (21-32); CHLORIDE 104 mmol/L (98-107); CREATININE 0.7 mg/dL (0.6-1.0); GFR 95.8; GLUCOSE 119 mg/dL (70-99); POTASSIUM 3.7 mmol/L (3.5-5.1); RBC,URINE 0 /HPF (0-2); SODIUM 140 mmol/L (136-145); SQUAMOUS EPITHELIAL CELL,UR MOD /LPF; WBC,URINE 0 /HPF (0-4)
[2017-12-12 20:44] LABS: ALBUMIN 3.2 g/dL (3.4-5.0); ALBUMIN/GLOBULIN RATIO 0.9 (1.0-1.7); ALK PHOS 71 U/L (46-116); ALT (SGPT) 20 U/L (14-59); AST (SGOT) 16 U/L (15-37); MAGNESIUM 2.2 mg/dL (1.8-2.4); TOTAL BILIRUBIN 0.2 mg/dL (0.2-1.0); TOTAL PROTEIN 6.8 g/dL (6.4-8.2)
[2017-12-12] MEDS: IV NORMAL SALINE 1000ML BAG 1,000 ML IV (20:51)
[2017-12-12] MEDS: PROCHLORPERAZINE 10 MG/2 ML VIAL. IV (20:52)
[2017-12-12] MEDS: fentaNYL PF VIAL 100 MCG/2 ML VIAL IV (20:52)
[2017-12-12] MEDS: diphenhydrAMINE 50 MG/ML VIAL IVP (20:52)
[2017-12-12] MEDS: KETOROLAC 30 MG/ML INJ. IV (21:57)
== END 2017-12-12 22:26 | disposition home or self-care (01) ==
LOC: ER 19:47
DX: R51 Headache (principal); H53.8 Other visual disturbances; H57.8 Other specified disorders of eye and adnexa; F43.10 Post-traumatic stress disorder, unspecified; F31.9 Bipolar disorder, unspecified; G43.909 Migraine, unspecified, not intractable, without status migrainosus; F41.0 Panic disorder [episodic paroxysmal anxiety]; Z88.1 Allergy status to other antibiotic agents; Z88.8 Allergy status to other drugs, medicaments and biological substances
CPT/HCPCS: 36415; 70450; 80053; 81001; 81025; 83735; 85025; 96361; 96374; 96375; 99285-25; J0780; J1200; J1885; J3010; J7030

== ENCOUNTER 2017-12-19 23:25 | Emergency (ER) | payer SELFPAY | END 2017-12-20 01:33 | disposition home or self-care (01) | LOC: ER 23:25 | DX: S63.502A Unspecified sprain of left wrist, initial encounter (principal); F31.9 Bipolar disorder, unspecified; G43.909 Migraine, unspecified, not intractable, without status migrainosus; F43.10 Post-traumatic stress disorder, unspecified; F41.0 Panic disorder [episodic paroxysmal anxiety]; Z88.8 Allergy status to other drugs, medicaments and biological substances; Z88.1 Allergy status to other antibiotic agents; W50.0XXA Accidental hit or strike by another person, initial encounter; Y93.89 Activity, other specified; Y92.89 Other specified places as the place of occurrence of the external cause; Y99.8 Other external cause status | CPT/HCPCS: 29125; 73110; 99284 ==

== ENCOUNTER 2017-12-28 14:28 | Emergency (ER) | payer SELFPAY | END 2017-12-28 14:55 | disposition home or self-care (01) | LOC: ER 14:55 | DX: K08.89 Other specified disorders of teeth and supporting structures (principal); F31.9 Bipolar disorder, unspecified; I10 Essential (primary) hypertension; G43.909 Migraine, unspecified, not intractable, without status migrainosus; F41.0 Panic disorder [episodic paroxysmal anxiety]; F43.10 Post-traumatic stress disorder, unspecified; Z88.1 Allergy status to other antibiotic agents; Z88.6 Allergy status to analgesic agent; Z88.8 Allergy status to other drugs, medicaments and biological substances | CPT/HCPCS: 99283 ==

== ENCOUNTER 2018-01-05 18:50 | Emergency (ER) | payer SELFPAY ==
[2018-01-05 19:41] LABS: NEG OBC UR NEG; POS OBC UR POS; U PREG PATIENT NEGATIVE (NEG)
[2018-01-05 19:42] LABS: BILIRUBIN,URINE NEGATIVE (NEG); CLARITY,URINE CLEAR; COLOR,URINE YELLOW; GLUCOSE,URINE NEGATIVE (NEG); NITRITE,URINE NEGATIVE (NEG); PROTEIN,URINE 100 mg/dL (NEG-TRACE); UROBILINOGEN,URINE 0.2 mg/dL (0.2 mg/dL)
[2018-01-05 19:43] LABS: RBC,URINE TNTC /HPF (0-2)
[2018-01-05 19:44] LABS: BACTERIA,URINE MODERATE /HPF (0-FEW); SQUAMOUS EPITHELIAL CELL,UR MOD /LPF
[2018-01-05] MEDS ORDERED: CONTRAST GIVEN MC (19:45)
[2018-01-05] MEDS: IV NORMAL SALINE 1000ML BAG 1,000 ML IV (19:45)
[2018-01-05] MEDS: ONDANSETRON PF 4 MG/2 ML VIAL. IV (19:51)
[2018-01-05 19:52] LABS: AMPHETAMINE/METHAMPHETAMINE NEG (NEG); BARBITURATES NEG (NEG); BENZODIAZEPINES NEG (NEG); CANNABINOIDS POS (NEG); COCAINE NEG (NEG); ETHANOL, URINE NEG (NEG); METHADONE NEG (NEG); OPIATES NEG (NEG); PHENCYCLIDINE NEG (NEG)
[2018-01-05] MEDS: MORPHINE SULFATE 10 MG/ML VIAL. IV (19:52)
[2018-01-05 20:07] LABS: ADD MAN DIFF? NO
[2018-01-05 20:12] LABS: BASO # 0.1 x10^3/uL (0.0-0.2); BASO % 1 % (0-3); EOS # 0.2 x10^3/uL (0.0-0.7); EOS % 1 % (0-3); HEMATOCRIT 40.1 % (36.0-47.0); HEMOGLOBIN 13.8 g/dL (12.0-15.5); LYMPH # 3.2 x10^3/uL (1.0-4.8); LYMPH % 28 % (24-48); MEAN CORPUSCULAR HEMOGLOBIN 30 pg (25-35); MEAN CORPUSCULAR HGB CONC 34 g/dL (31-37); MEAN CORPUSCULAR VOLUME 88 fL (79-100); MONO # 0.7 x10^3/uL (0.0-1.1); MONO % 6 % (0-9); NEUT # 7.2 x10^3uL (1.8-7.7); NEUT % 63 % (31-73); PLATELET COUNT 391 x10^3/uL (140-400); RED BLOOD COUNT 4.55 x10^6/uL (3.50-5.40); RED CELL DISTRIBUTION WIDTH 13.4 % (11.5-14.5); WHITE BLOOD COUNT 11.3 x10^3/uL (4.0-11.0)
[2018-01-05 20:22] LABS: ANION GAP 11 (6-14); BLOOD UREA NITROGEN 13 mg/dL (7-20); BUN/CREATININE RATIO 14 (6-20); CARBON DIOXIDE 24 mmol/L (21-32); CHLORIDE 105 mmol/L (98-107); CREATININE 0.9 mg/dL (0.6-1.0); GFR 71.7; GLUCOSE 126 mg/dL (70-99); POTASSIUM 3.5 mmol/L (3.5-5.1); SODIUM 140 mmol/L (136-145)
[2018-01-05 20:28] LABS: ALBUMIN 3.3 g/dL (3.4-5.0); ALBUMIN/GLOBULIN RATIO 0.8 (1.0-1.7); ALK PHOS 95 U/L (46-116); ALT (SGPT) 35 U/L (14-59); AST (SGOT) 17 U/L (15-37); LIPASE 236 U/L (73-393); TOTAL BILIRUBIN 0.2 mg/dL (0.2-1.0); TOTAL PROTEIN 7.3 g/dL (6.4-8.2)
[2018-01-05] MEDS: IOHEXOL 300 MG/ML 100ML VIAL. IV (20:45)
[2018-01-07 14:25] LABS: CHLAMYDIA PROBE Negative (Negative); GC PROBE Negative (Negative)
== END 2018-01-05 21:25 | disposition home or self-care (01) ==
LOC: ER 21:25
DX: K59.00 Constipation, unspecified (principal); F41.9 Anxiety disorder, unspecified; I10 Essential (primary) hypertension; G43.909 Migraine, unspecified, not intractable, without status migrainosus; F41.0 Panic disorder [episodic paroxysmal anxiety]; F43.10 Post-traumatic stress disorder, unspecified; Z98.51 Tubal ligation status; Z88.1 Allergy status to other antibiotic agents; Z88.8 Allergy status to other drugs, medicaments and biological substances
CPT/HCPCS: 36415; 74177; 80053; 80307; 81001; 81025; 83690; 85025; 87086; 87491; 87591; 96361; 96374; 96375; 99285-25; J2270; J2405; J7030; Q0111; Q9967

== ENCOUNTER 2018-01-16 00:06 | Emergency (ER) | payer SELFPAY ==
[2018-01-16] MEDS ORDERED: cloNIDine HCL 0.1 MG TABLET (00:35)
[2018-01-16] MEDS: cloNIDine HCL 0.1 MG TABLET PO (00:38)
== END 2018-01-16 00:48 | disposition home or self-care (01) ==
LOC: ER 00:06
DX: F41.9 Anxiety disorder, unspecified (principal); I10 Essential (primary) hypertension; F43.10 Post-traumatic stress disorder, unspecified; F31.9 Bipolar disorder, unspecified; G43.909 Migraine, unspecified, not intractable, without status migrainosus; Z98.51 Tubal ligation status; Z88.1 Allergy status to other antibiotic agents; Z88.8 Allergy status to other drugs, medicaments and biological substances
CPT/HCPCS: 99284

== ENCOUNTER 2018-03-19 20:57 | Emergency (ER) | payer SELFPAY ==
[2018-03-19 21:31] LABS: URINE HCG POC HCG NEGATIVE (Negative)
[2018-03-19] MEDS: ACETAMINOPHEN 500 MG TABLET PO (22:06)
[2018-03-19] MEDS: diphenhydrAMINE 50 MG/ML VIAL IVP (22:07)
[2018-03-19] MEDS: cloNIDine HCL 0.1 MG TABLET PO (22:07)
[2018-03-19] MEDS: PROCHLORPERAZINE 10 MG/2 ML VIAL. IV (22:08)
== END 2018-03-20 00:28 | disposition home or self-care (01) ==
LOC: ER 03-20 00:28
DX: G43.909 Migraine, unspecified, not intractable, without status migrainosus (principal); I10 Essential (primary) hypertension; F41.9 Anxiety disorder, unspecified; F31.9 Bipolar disorder, unspecified; Z98.51 Tubal ligation status; Z88.2 Allergy status to sulfonamides
CPT/HCPCS: 81025; 96374; 96375; 99284; J0780; J1200

== ENCOUNTER 2019-06-22 18:12 | Emergency (ER) | payer SELFPAY ==
[~2019-06-22] VITALS: Ht 157.5 cm; Wt 88.5 kg
[~2019-06-22 18:12] MED LIST changes: +AMLO2.5T2 PO; +BENZ100C PO; +BUTA1TAB23 PO; +IBUP-1060 PO; +TRAM1TAB4 PO
[2019-06-22] MEDS ORDERED: DICYCLOMINE 20 MG/2 ML AMPUL. IM STA (19:45)
[2019-06-22] MEDS ORDERED: IV NORMAL SALINE 1000ML BAG 1,000 ML IV ONE (19:45)
--- NOTE | 2019-06-22 19:50 | PHYS DOC ---
Past Medical History Past Medical History: Anxiety, Bipolar, Hypertension, Migraines, Other Additional Past Medical Histor: RIGHT KNEE INJURY, PANIC DISORDER, PTSD (JANELL NICHOLS APRN) Past Surgical History: Tubal ligation, Other Additional Past Surgical Histo: 2001-DNC, CYST REMOVAL ON TAILBONE (JANELL NICHOLS APRN) Alcohol Use: Rarely Drug Use: Methamphetamine Social History Narrative: LAST USED MAY 09 2019 (JANELL NICHOLS APRN) Adult General Chief Complaint Chief Complaint: NAUSEA/VOMITING/DIARRHA HPI HPI Patient is a 33 year old female that presents with back pain, abdominal pain has been ongoing for week. The patient also states she's been having diarrhea and nausea that started yesterday. The patient states she was seen at 1 week ago in the ER and discharged home. The patient states she was also in the ICU at on May 09 where she had a meth overdose. Patient rates her pain as 7 out of 10 in severity and sharp. Patient states she took Tylenol at home. (JANELL NICHOLS APRN) Review of Systems Review of Systems Constitutional: Denies fever or chills [] Eyes: Denies change in visual acuity, redness, or eye pain [] HENT: Denies nasal congestion or sore throat [] Respiratory: Denies cough or shortness of breath [] Cardiovascular: No additional information not addressed in HPI [] GI: Reports abdominal pain, nausea, and diarrhea [] : Denies dysuria or hematuria [] Musculoskeletal: Reports back pain Integument: Denies rash or skin lesions [] Neurologic: Denies headache, focal weakness or sensory changes [] Endocrine: Denies polyuria or polydipsia [] Complete systems were reviewed and found to be within normal limits, except as documented in this note. (JANELL NICHOLS APRN) Current Medications Current Medications Current Medications Medications (Trade) Dose Ordered Sig/Shashi Start Time Stop Time Status Last Admin Dose Admin Dicyclomine HCl (Bentyl) 10 mg 1X STAT 06/22/19 19:45 06/22/19 19:51 DC 06/22/19 21:14 10 MG Info (CONTRAST GIVEN -- Rx MONITORING) 1 each PRN DAILY PRN 06/22/19 21:00 06/22/19 22:40 DC Iohexol (Omnipaque 300 Mg/ml) 75 ml 1X ONCE 06/22/19 21:30 9/16/19 21:31 DC 06/22/19 21:33 75 ML Morphine Sulfate (Morphine Sulfate) 4 mg 1X ONCE 06/22/19 22:30 06/22/19 22:31 DC Ondansetron HCl (Zofran) 4 mg 1X ONCE 06/22/19 20:15 06/22/19 20:16 DC 06/22/19 21:14 4 MG Potassium Chloride (Klor-Con) 40 meq 1X ONCE 06/22/19 23:00 06/22/19 22:40 DC 06/22/19 22:34 40 MEQ Sodium Chloride 1,000 ml @ 1,000 mls/hr 1X ONCE 06/22/19 19:45 06/22/19 20:44 DC 06/22/19 21:14 1,000 MLS/HR (JANELL BRYANT DO) Allergies Allergies Allergies Coded Allergies Type Severity Reaction Last Updated Verified amoxicillin Adverse Reaction Intermediate OTHER 01/19/17 Yes clavulanic acid Adverse Reaction Intermediate Nausea and Vomiting 01/19/17 Yes diclofenac Adverse Reaction Intermediate OTHER 01/19/17 Yes (JANELL BRYANT DO) Physical Exam Physical Exam Constitutional: Well developed, well nourished, no acute distress, non-toxic appearance. [] HENT: Normocephalic, atraumatic, bilateral external ears normal, oropharynx moist, no oral exudates, nose normal. [] Eyes: PERRLA, EOMI, conjunctiva normal, no discharge. [] Neck: Normal range of motion, no tenderness, supple, no stridor. [] Cardiovascular:Heart rate regular rhythm, no murmur [] Lungs & Thorax: Bilateral breath sounds clear to auscultation [] Abdomen: Bowel sounds normal, soft, diffuse tenderness, no masses, no pulsatile masses. [] Skin: Warm, dry, no erythema, no rash. [] Back: Has R CVA tenderness. [] Extremities: No tenderness, no cyanosis, no clubbing, ROM intact, no edema. [] Neurologic: Alert and oriented X 3, normal motor function, normal sensory function, no focal deficits noted. [] Psychologic: Affect normal, judgement normal, mood normal. [] (JANELL NICHOLS APRN) Current Patient Data Vital Signs Vital Signs Date Time Temp Pulse Resp B/P (MAP) Pulse Ox O2 Delivery O2 Flow Rate FiO2 06/22/19 22:10 77 18 181/95 (123) 98 06/22/19 19:20 98.1 Room Air 98.1 (JANELL BRYANT DO) Lab Values Laboratory Tests Test 06/22/19 19:19 06/22/19 19:56 06/22/19 20:25 06/22/19 20:45 Urine Collection Type Unknown Urine Color Yellow Urine Clarity Cloudy Urine pH 7.0 Urine Specific [place] 1.020 Urine Protein Negative mg/dL (NEG-TRACE) Urine Glucose (UA) Negative mg/dL (NEG) Urine Ketones (Stick) Negative mg/dL (NEG) Urine Blood Negative (NEG) Urine Nitrite Negative (NEG) Urine Bilirubin Negative (NEG) Urine Urobilinogen Dipstick 1.0 mg/dL (0.2 mg/dL) Urine Leukocyte Esterase Negative (NEG) Urine RBC 0 /HPF (0-2) Urine WBC 1-4 /HPF (0-4) Urine Squamous Epithelial Cells Many /LPF Urine Bacteria Moderate /HPF (0-FEW) Urine Mucus Marked /LPF POC Urine HCG, Qualitative Borderline hcg level White Blood Count 13.0 x10^3/uL (4.0-11.0) H Red Blood Count 4.39 x10^6/uL (3.50-5.40) Hemoglobin 13.6 g/dL (12.0-15.5) Hematocrit 39.1 % (36.0-47.0) Mean Corpuscular Volume 89 fL (79-100) Mean Corpuscular Hemoglobin 31 pg (25-35) Mean Corpuscular Hemoglobin Concent 35 g/dL (31-37) Red Cell Distribution Width 13.9 % (11.5-14.5) Platelet Count 316 x10^3/uL (140-400) Neutrophils (%) (Auto) 68 % (31-73) Lymphocytes (%) (Auto) 25 % (24-48) Monocytes (%) (Auto) 5 % (0-9) Eosinophils (%) (Auto) 1 % (0-3) Basophils (%) (Auto) 1 % (0-3) Neutrophils # (Auto) 8.8 x10^3/uL (1.8-7.7) H Lymphocytes # (Auto) 3.2 x10^3/uL (1.0-4.8) Monocytes # (Auto) 0.7 x10^3/uL (0.0-1.1) Eosinophils # (Auto) 0.1 x10^3/uL (0.0-0.7) Basophils # (Auto) 0.2 x10^3/uL (0.0-0.2) Sodium Level 142 mmol/L (136-145) Potassium Level 3.2 mmol/L (3.5-5.1) L Chloride Level 106 mmol/L (98-107) Carbon Dioxide Level 26 mmol/L (21-32) Anion Gap 10 (6-14) Blood Urea Nitrogen 7 mg/dL (7-20) Creatinine 0.7 mg/dL (0.6-1.0) Estimated GFR (Cockcroft-Gault) 95.2 BUN/Creatinine Ratio 10 (6-20) Glucose Level 111 mg/dL (70-99) H Calcium Level 9.2 mg/dL (8.5-10.1) Magnesium Level 2.2 mg/dL (1.8-2.4) Total Bilirubin 0.2 mg/dL (0.2-1.0) Aspartate Amino Transferase (AST) 15 U/L (15-37) Alanine Aminotransferase (ALT) 20 U/L (14-59) Alkaline Phosphatase 74 U/L (46-116) Total Protein 7.1 g/dL (6.4-8.2) Albumin 3.5 g/dL (3.4-5.0) Albumin/Globulin Ratio 1.0 (1.0-1.7) Lipase 159 U/L (73-393) Maternal Serum HCG Beta Subunit < 1 mIU/mL (0-5) Laboratory Tests 06/22/19 20:25 Laboratory Tests 06/22/19 20:25 (JANELL BRYANT DO) Lab Values Laboratory Tests Test 06/22/19 19:19 06/22/19 19:56 06/22/19 20:25 06/22/19 20:45 Urine Collection Type Unknown Urine Color Yellow Urine Clarity Cloudy Urine pH 7.0 Urine Specific [place] 1.020 Urine Protein Negative mg/dL (NEG-TRACE) Urine Glucose (UA) Negative mg/dL (NEG) Urine Ketones (Stick) Negative mg/dL (NEG) Urine Blood Negative (NEG) Urine Nitrite Negative (NEG) Urine Bilirubin Negative (NEG) Urine Urobilinogen Dipstick 1.0 mg/dL (0.2 mg/dL) Urine Leukocyte Esterase Negative (NEG) Urine RBC 0 /HPF (0-2) Urine WBC 1-4 /HPF (0-4) Urine Squamous Epithelial Cells Many /LPF Urine Bacteria Moderate /HPF (0-FEW) Urine Mucus Marked /LPF POC Urine HCG, Qualitative Borderline hcg level White Blood Count 13.0 x10^3/uL (4.0-11.0) H Red Blood Count 4.39 x10^6/uL (3.50-5.40) Hemoglobin 13.6 g/dL (12.0-15.5) Hematocrit 39.1 % (36.0-47.0) Mean Corpuscular Volume 89 fL (79-100) Mean Corpuscular Hemoglobin 31 pg (25-35) Mean Corpuscular Hemoglobin Concent 35 g/dL (31-37) Red Cell Distribution Width 13.9 % (11.5-14.5) Platelet Count 316 x10^3/uL (140-400) Neutrophils (%) (Auto) 68 % (31-73) Lymphocytes (%) (Auto) 25 % (24-48) Monocytes (%) (Auto) 5 % (0-9) Eosinophils (%) (Auto) 1 % (0-3) Basophils (%) (Auto) 1 % (0-3) Neutrophils # (Auto) 8.8 x10^3/uL (1.8-7.7) H Lymphocytes # (Auto) 3.2 x10^3/uL (1.0-4.8) Monocytes # (Auto) 0.7 x10^3/uL (0.0-1.1) Eosinophils # (Auto) 0.1 x10^3/uL (0.0-0.7) Basophils # (Auto) 0.2 x10^3/uL (0.0-0.2) Sodium Level 142 mmol/L (136-145) Potassium Level 3.2 mmol/L (3.5-5.1) L Chloride Level 106 mmol/L (98-107) Carbon Dioxide Level 26 mmol/L (21-32) Anion Gap 10 (6-14) Blood Urea Nitrogen 7 mg/dL (7-20) Creatinine 0.7 mg/dL (0.6-1.0) Estimated GFR (Cockcroft-Gault) 95.2 BUN/Creatinine Ratio 10 (6-20) Glucose Level 111 mg/dL (70-99) H Calcium Level 9.2 mg/dL (8.5-10.1) Magnesium Level 2.2 mg/dL (1.8-2.4) Total Bilirubin 0.2 mg/dL (0.2-1.0) Aspartate Amino Transferase (AST) 15 U/L (15-37) Alanine Aminotransferase (ALT) 20 U/L (14-59) Alkaline Phosphatase 74 U/L (46-116) Total Protein 7.1 g/dL (6.4-8.2) Albumin 3.5 g/dL (3.4-5.0) Albumin/Globulin Ratio 1.0 (1.0-1.7) Lipase 159 U/L (73-393) Maternal Serum HCG Beta Subunit < 1 mIU/mL (0-5) Laboratory Tests 06/22/19 20:25 Laboratory Tests 06/22/19 20:25 (JANELL NICHOLS APRN) EKG EKG [] (JANELL NICHOLS APRN) Radiology/Procedures Radiology/Procedures [][facility] [address] [place] [address] IMAGING REPORT Signed PATIENT: AMY AUSTIN ACCOUNT: [id number] : 1985 LOCATION: ER AGE: 33 SEX: F EXAM STATUS: REG ER ORD. PHYSICIAN: JANELL NICHOLS APRN REASON: abd pain PROCEDURE: CT ABD PELV W/ IV CONTRST ONLY Examination: CT ABD PELV W/ IV CONTRST ONLY History: Abdominal pain Comparison/Correlation: 01/05/2018 CT abdomen and pelvis with IV contrast Findings: Axial images of the abdomen and pelvis were obtained following IV contrast. Sagittal and coronal reformatted images were provided. Visualized lung bases are clear. Liver, spleen, pancreas, and adrenal glands are normal. Cholecystectomy noted. Kidneys are unremarkable. Moderate debris within the stomach noted. Moderate quantity of stool in the colon. Appendix is unremarkable. No bowel obstruction. Uterus is unremarkable. No ascites or pelvic free fluid. Bony structures are unremarkable for the patient's age. Impression: No suspicious process. PQRS Compliance Statement: One or more of the following individualized dose reduction techniques were utilized for this examination: 1. Automated exposure control 2. Adjustment of the mA and/or kV according to patient size 3. Use of iterative reconstruction technique Electronically signed by: Mark Anthony Armendariz MD (06/22/2019 10:04 PM) [facility] DICTATED and SIGNED BY: MARK ANTHONY ARMENDARIZ MD DATE: 06/22/192203 (JANELL NICHOLS APRN) Course & Med Decision Making Course & Med Decision Making Pertinent Labs and Imaging studies reviewed. (See chart for details) Will get labs, ua, and CT. Will give NS and Bentyl for abdominal cramping. Labs and UA are unremarkable with exception of 3.[address] is unremarkable. (JANELL NICHOLS APRN) Dragon Disclaimer Dragon Disclaimer This electronic medical record was generated, in whole or in part, using a voice recognition dictation system. (JANELL NICHOLS APRN) Departure Departure Impression: Primary Impression: Abdominal pain Additional Impressions: Nausea & vomiting Acute diarrhea Disposition: HOME, SELF-CARE Condition: STABLE Referrals: NO PCP (PCP) Patient Instructions: Diarrhea, Nausea and Vomiting Additional Instructions: Thank you for visiting [facility]. We appreciate you trusting us with your care. If any additional problems come up don't hesitate to return to visit us. Please follow up with your primary care provider so they can plan additional care if needed and know about the problem that you had. If symptoms worsen come back to the Emergency Department. Any concerning symptoms that start such as chest pain, shortness of air, weakness or numbness on one side of the body, running high fevers or any other concerning symptoms return to the ER. Please drink plenty of fluids and get plenty of rest. Scripts Ondansetron (ONDANSETRON ODT) 4 Mg Tab.rapdis 1 TAB PO PRN Q6-8HRS PRN for NAUSEA, #16 TAB Prov: JANELL NICHOLS APRN 06/22/19 Attending Signature Attending Signature I have reviewed the PA/DEVICE PROCESSING ENGINEER's note and plan of care. I was available for consultation as needed during the patient's visit in the emergency department. I agree with the clinical impression, plan, and disposition. (JANELL BRYANT DO) Problem Qualifiers Primary Impression: Abdominal pain Abdominal location: generalized Qualified Codes: R10.84 - Generalized abdominal pain Additional Impressions: Nausea & vomiting Vomiting type: unspecified Vomiting Intractability: unspecified Qualified Codes: R11.2 - Nausea with vomiting, unspecified JANELL NICHOLS APRN Jun 22, 2019 19:50 JANELL BRYANT DO Jun 23, 2019 04:27
[2019-06-22 20:03] LABS: BILIRUBIN,URINE NEGATIVE (NEG); CLARITY,URINE CLOUDY; COLOR,URINE YELLOW; NITRITE,URINE NEGATIVE (NEG); PROTEIN,URINE NEGATIVE (NEG-TRACE)
[2019-06-22 20:07] LABS: SQUAMOUS EPITHELIAL CELL,UR MANY /LPF
[2019-06-22 20:08] LABS: BACTERIA,URINE MODERATE /HPF (0-FEW); RBC,URINE 0 /HPF (0-2)
[2019-06-22] MEDS ORDERED: ONDANSETRON PF 4 MG/2 ML VIAL. IV ONE (20:15)
[2019-06-22 20:45] LABS: BASO # 0.2 x10^3/uL (0.0-0.2); BASO % 1 % (0-3); EOS # 0.1 x10^3/uL (0.0-0.7); EOS % 1 % (0-3); HEMATOCRIT 39.1 % (36.0-47.0); HEMOGLOBIN 13.6 g/dL (12.0-15.5); LYMPH # 3.2 x10^3/uL (1.0-4.8); LYMPH % 25 % (24-48); MEAN CORPUSCULAR HEMOGLOBIN 31 pg (25-35); MEAN CORPUSCULAR HGB CONC 35 g/dL (31-37); MEAN CORPUSCULAR VOLUME 89 fL (79-100); MONO # 0.7 x10^3/uL (0.0-1.1); MONO % 5 % (0-9); NEUT # 8.8 x10^3/uL (1.8-7.7); NEUT % 68 % (31-73); PLATELET COUNT 316 x10^3/uL (140-400); RED BLOOD COUNT 4.39 x10^6/uL (3.50-5.40); RED CELL DISTRIBUTION WIDTH 13.9 % (11.5-14.5)
[2019-06-22 20:52] LABS: CALCIUM 9.2 mg/dL (8.5-10.1); CREATININE 0.7 mg/dL (0.6-1.0); GFR 95.2; POTASSIUM 3.2 mmol/L (3.5-5.1)
[2019-06-22 20:58] LABS: ALBUMIN 3.5 g/dL (3.4-5.0); MAGNESIUM 2.2 mg/dL (1.8-2.4); TOTAL BILIRUBIN 0.2 mg/dL (0.2-1.0); TOTAL PROTEIN 7.1 g/dL (6.4-8.2)
[2019-06-22] MEDS ORDERED: CONTRAST GIVEN. MC PRN (21:00)
[2019-06-22] MEDS ORDERED: IOHEXOL 300 MG/ML 100ML VIAL. IV ONE (21:30)
--- NOTE | 2019-06-22 22:07 | RAD ---
Examination: CT ABD PELV W/ IV CONTRST ONLY History: Abdominal pain Comparison/Correlation: 01/05/2018 CT abdomen and pelvis with IV contrast Findings: Axial images of the abdomen and pelvis were obtained following IV contrast. Sagittal and coronal reformatted images were provided. Visualized lung bases are clear. Liver, spleen, pancreas, and adrenal glands are normal. Cholecystectomy noted. Kidneys are unremarkable. Moderate debris within the stomach noted. Moderate quantity of stool in the colon. Appendix is unremarkable. No bowel obstruction. Uterus is unremarkable. No ascites or pelvic free fluid. Bony structures are unremarkable for the patient's age. Impression: No suspicious process. PQRS Compliance Statement: One or more of the following individualized dose reduction techniques were utilized for this examination: 1. Automated exposure control 2. Adjustment of the mA and/or kV according to patient size 3. Use of iterative reconstruction technique Electronically signed by: Mark Anthony Rain MD (06/22/2019 10:04 PM) [facility]
[2019-06-22 22:10] VITALS: BP 181/95
[2019-06-22] MEDS ORDERED: ONDA4TAB12 PO (22:29)
[2019-06-22] MEDS ORDERED: MORPHINE SULFATE 4 MG/ML VIAL. IV ONE (22:30)
[2019-06-22] MEDS ORDERED: POTASSIUM CHLORIDE 20 MEQ TABLET.ER. PO ONE (23:00)
== END 2019-06-22 22:40 | disposition home or self-care (01) ==
LOC: ER 18:12
DX: R10.84 Generalized abdominal pain (principal); R11.2 Nausea with vomiting, unspecified; R19.7 Diarrhea, unspecified; F41.9 Anxiety disorder, unspecified; F31.9 Bipolar disorder, unspecified; I10 Essential (primary) hypertension; G43.909 Migraine, unspecified, not intractable, without status migrainosus; Z98.51 Tubal ligation status; Z88.1 Allergy status to other antibiotic agents; Z88.6 Allergy status to analgesic agent
CPT/HCPCS: 36415; 74177; 80053; 81001; 81025; 83690; 83735; 84702; 85025; 87086; 96361; 96372; 96374; 99285; J0500; J2405; J7030; Q9967; 96375

== ENCOUNTER 2019-08-07 01:45 | Emergency (ER) | payer SELFPAY ==
[~2019-08-07] VITALS: Ht 154.9 cm; Wt 88.5 kg
[~2019-08-07 01:45] MED LIST changes: +ONDA4TAB12 PO
[2019-08-07 01:59] VITALS: BP 157/70
[2019-08-07] MEDS ORDERED: TRAM50TA PO (02:12)
[2019-08-07] MEDS ORDERED: CLIN300C8 PO (02:12)
--- NOTE | 2019-08-07 02:12 | PHYS DOC ---
Past Medical History Past Medical History: Anxiety, Bipolar, Hypertension, Migraines, Other Additional Past Medical Histor: RIGHT KNEE INJURY, PANIC DISORDER, PTSD Past Surgical History: Tubal ligation, Other Additional Past Surgical Histo: 2001-DNC, CYST REMOVAL ON TAILBONE Alcohol Use: Rarely Drug Use: Methamphetamine Adult General Chief Complaint Chief Complaint: ABSCESS HPI HPI 33-year-old female presents to the emergency department with complaints of left labial abscess. His presenting more in her groin on examination. She states this happened about a week ago however has not went away. She denies any fever or systemic symptoms. No evidence of drainage appreciated. Movements and palpation makes pain worse. She denies any nausea, vomiting no chest pain, shortness breath, abdominal pain. She denies any urinary symptoms. Review of Systems Review of Systems Constitutional: Denies fever or chills [] Respiratory: Denies cough or shortness of breath [] Cardiovascular: No additional information not addressed in HPI [] GI: Denies abdominal pain, nausea, vomiting, bloody stools or diarrhea [] : left labial pain, nonfluctuant abscess Neurologic: Denies headache, focal weakness or sensory changes [] All other systems were reviewed and found to be within normal limits, except as documented in this note. Allergies Allergies Allergies Coded Allergies Type Severity Reaction Last Updated Verified amoxicillin Adverse Reaction Intermediate OTHER 01/19/17 Yes clavulanic acid Adverse Reaction Intermediate Nausea and Vomiting 01/19/17 Yes diclofenac Adverse Reaction Intermediate OTHER 01/19/17 Yes Physical Exam Physical Exam Constitutional: Well developed, well nourished, no acute distress, non-toxic appearance. [] Cardiovascular:Heart rate regular rhythm, no murmur [] Lungs & Thorax: Bilateral breath sounds clear to auscultation [] Abdomen: Bowel sounds normal, soft, no tenderness, no masses, no pulsatile masses. [] Skin: Warm, dry, no erythema, no rash. [] Extremities: No tenderness, no edema. [] Neurologic: Alert and oriented X 3, no focal deficits noted. [] Psychologic: Affect normal, judgement normal, mood normal. [] : nonfluctuant area of induration appreciated, no drainage EKG EKG [] Radiology/Procedures Radiology/Procedures [] Course & Med Decision Making Course & Med Decision Making Pertinent Labs and Imaging studies reviewed. (See chart for details) []33-year-old female presents to the emergency department with complaints of left labial abscess. His presenting more in her groin on examination. She states this happened about a week ago however has not went away. She denies any fever or systemic symptoms. No evidence of drainage appreciated. Movements and palpation makes pain worse. She denies any nausea, vomiting no chest pain, shortness breath, abdominal pain. She denies any urinary symptoms. Exam reveals no area needing drainage at this time. Area of induration however no fluctuance. Discussed use of abx upon discharge Plan abx and follow up with PCP as outpatient Dragon Disclaimer Dragon Disclaimer This electronic medical record was generated, in whole or in part, using a voice recognition dictation system. Departure Departure Impression: Primary Impression: Labial abscess Disposition: 01 HOME, SELF-CARE Condition: STABLE Referrals: NO PCP (PCP) Patient Instructions: Abscess, [id number] Additional Instructions: Recommend follow up with PCP 3 - 5 days Return to the ER with worsening symptoms, intractable pain, fever, altered mental status Tylenol/Motrin as needed for pain Take antibiotics as directed Scripts Clindamycin Hcl (CLINDAMYCIN HCL) 300 Mg Capsule 1 CAP PO TID for 7 Days, #21 CAP Prov: CARLOS ALBERTO PICKERING MD 08/07/19 Tramadol Hcl (TRAMADOL HCL) 50 Mg Tablet 50 MG PO Q4HRS PRN for PAIN for 3 Days, #18 TAB Prov: CARLOS ALBERTO PICKERING MD 08/07/19 CARLOS ALBERTO PICKERING MD Aug 07, 2019 02:12
== END 2019-08-07 02:18 | disposition home or self-care (01) ==
LOC: ER 01:45
DX: N76.4 Abscess of vulva (principal); F31.9 Bipolar disorder, unspecified; F41.9 Anxiety disorder, unspecified; I10 Essential (primary) hypertension; G43.909 Migraine, unspecified, not intractable, without status migrainosus; Z98.51 Tubal ligation status; Z88.1 Allergy status to other antibiotic agents; Z88.6 Allergy status to analgesic agent
CPT/HCPCS: 99283

== ENCOUNTER 2019-08-30 20:18 | Emergency (ER) | payer SELFPAY ==
[~2019-08-30] VITALS: Ht 154.9 cm; Wt 88.5 kg
[2019-08-30] MEDS ORDERED: ALBUTEROL SULFATE 2.5 MG/3 ML NEBU. CONT NEB ONE (20:45)
[2019-08-30] MEDS ORDERED: ACETAMINOPHEN 500 MG TABLET PO ONE (20:45)
--- NOTE | 2019-08-30 21:02 | PHYS DOC ---
Past Medical History Past Medical History: Anxiety, Bipolar, Hypertension, Migraines, Other Additional Past Medical Histor: RIGHT KNEE INJURY, PANIC DISORDER, PTSD Past Surgical History: Tubal ligation, Other Additional Past Surgical Histo: 2001-DNC, CYST REMOVAL ON TAILBONE Alcohol Use: Rarely Drug Use: Methamphetamine Adult General Chief Complaint Chief Complaint: SHORTNESS OF BREATH HPI HPI Patient is a 33 year old female presenting with chief complaint of shortness of breath cough with yellow sputum present reactive cough prolonged expiratory phase faint wheezing She went to [facility] she had nebulizer she felt better for a little while but it came back much worse she wants something for the pain she is allergic to Toradol causes a bad migraine Chest pain worse with deep breathing on the left worse with coughing as well Review of Systems Review of Systems Constitutional: Denies fever or chills [] Eyes: Denies change in visual acuity, redness, or eye pain [] HENT: Denies nasal congestion or sore throat [] Neurologic: Denies headache, focal weakness or sensory changes [] Endocrine: Denies polyuria or polydipsia [] All other systems were reviewed and found to be within normal limits, except as documented in this note. Current Medications Current Medications Current Medications Medications (Trade) Dose Ordered Sig/Shashi Start Time Stop Time Status Last Admin Dose Admin Acetaminophen (Tylenol) 1,000 mg 1X ONCE 08/30/19 20:45 08/30/19 20:46 DC Albuterol Sulfate (Ventolin Neb Soln) 10 mg 1X ONCE 08/30/19 20:45 08/30/19 20:46 DC 08/30/19 21:30 10 MG Allergies Allergies Allergies Coded Allergies Type Severity Reaction Last Updated Verified amoxicillin Adverse Reaction Intermediate OTHER 01/19/17 Yes clavulanic acid Adverse Reaction Intermediate Nausea and Vomiting 01/19/17 Yes diclofenac Adverse Reaction Intermediate OTHER 01/19/17 Yes Physical Exam Physical Exam Constitutional: Well developed, well nourished, no acute distress, non-toxic appearance. [] HENT: Normocephalic, atraumatic, bilateral external ears normal, oropharynx moist, no oral exudates, nose normal. [] Eyes: PERRLA, EOMI, conjunctiva normal, no discharge. [] Neck: Normal range of motion, no tenderness, supple, no stridor. [] Cardiovascular:Heart rate regular rhythm, no murmur [] Lungs & Thorax: Prolonged expiratory phase there is some reactive coughing wheezing there is patient producing yellow sputum in the emergency room Abdomen: Bowel sounds normal, soft, no tenderness, no masses, no pulsatile masses. [] Skin: Warm, dry, no erythema, no rash. [] Back: No tenderness, no CVA tenderness. [] Extremities: No tenderness, no cyanosis, no clubbing, ROM intact, no edema. [] Neurologic: Alert and oriented X 3, normal motor function, normal sensory function, no focal deficits noted. [] Psychologic: Mild anxiety noted Current Patient Data Vital Signs Vital Signs Date Time Temp Pulse Resp B/P (MAP) Pulse Ox O2 Delivery O2 Flow Rate FiO2 08/30/19 21:33 97 Room Air 08/30/19 20:25 98.1 108 34 157/83 (107) 98.1 Lab Values Laboratory Tests Test 08/30/19 21:05 White Blood Count 10.0 x10^3/uL (4.0-11.0) Red Blood Count 3.74 x10^6/uL (3.50-5.40) Hemoglobin 11.4 g/dL (12.0-15.5) L Hematocrit 33.3 % (36.0-47.0) L Mean Corpuscular Volume 89 fL (79-100) Mean Corpuscular Hemoglobin 31 pg (25-35) Mean Corpuscular Hemoglobin Concent 34 g/dL (31-37) Red Cell Distribution Width 12.9 % (11.5-14.5) Platelet Count 270 x10^3/uL (140-400) Neutrophils (%) (Auto) 91 % (31-73) H Lymphocytes (%) (Auto) 7 % (24-48) L Monocytes (%) (Auto) 2 % (0-9) Eosinophils (%) (Auto) 0 % (0-3) Basophils (%) (Auto) 0 % (0-3) Neutrophils # (Auto) 9.1 x10^3/uL (1.8-7.7) H Lymphocytes # (Auto) 0.7 x10^3/uL (1.0-4.8) L Monocytes # (Auto) 0.2 x10^3/uL (0.0-1.1) Eosinophils # (Auto) 0.0 x10^3/uL (0.0-0.7) Basophils # (Auto) 0.0 x10^3/uL (0.0-0.2) Segmented Neutrophils % 96 % (35-66) H Lymphocytes % 3 % (24-48) L Monocytes % 1 % (0-10) Platelet Estimate Adequate (ADEQUATE) D-Dimer (Lesley) < 0.27 ug/mlFEU Sodium Level 139 mmol/L (136-145) Potassium Level 3.3 mmol/L (3.5-5.1) L Chloride Level 106 mmol/L (98-107) Carbon Dioxide Level 21 mmol/L (21-32) Anion Gap 12 (6-14) Blood Urea Nitrogen 10 mg/dL (7-20) Creatinine 0.9 mg/dL (0.6-1.0) Estimated GFR (Cockcroft-Gault) 71.3 BUN/Creatinine Ratio 11 (6-20) Glucose Level 259 mg/dL (70-99) H Calcium Level 8.5 mg/dL (8.5-10.1) Total Bilirubin 0.2 mg/dL (0.2-1.0) Aspartate Amino Transferase (AST) 14 U/L (15-37) L Alanine Aminotransferase (ALT) 22 U/L (14-59) Alkaline Phosphatase 74 U/L (46-116) Troponin I Quantitative < 0.017 ng/mL (0.000-0.055) XH-Hrm-L-Type Natriuretic Peptide 720 pg/mL (0-124) H Total Protein 6.9 g/dL (6.4-8.2) Albumin 3.1 g/dL (3.4-5.0) L Albumin/Globulin Ratio 0.8 (1.0-1.7) L Laboratory Tests 08/30/19 21:05 Laboratory Tests 08/30/19 21:05 EKG EKG [] Radiology/Procedures Radiology/Procedures [] Impressions: gle upright portable exam of the chest was performed. Heart size and mediastinal contours are within normal limits given technique. The lungs are clear without evidence of focal consolidation. Vascular interstitium is within normal limits. Impression:: Negative portable chest. Electronically signed by: Grant Méndez MD (08/30/2019 9:04 PM) [facility] DICTATED and SIGNED BY: GRANT MÉNDEZ MD DATE: 08/30/192103 Course & Med Decision Making Course & Med Decision Making Pertinent Labs and Imaging studies reviewed. (See chart for details) []History of COPD hypertension bipolar disorder presenting with cough yellow sputum shortness of breath found to have tachycardia she has pleuritic chest pain she went to a different hospital had beta agonist therapy she still feels quite short of breath plan for d-dimer to rule out PE D-dimer is negative BNP nonspecific mild hypokalemia other labs look pretty good. Patient was requesting pain medication the emergency room for rib pain from coughing I recommended Tylenol she said she had just taken that I offered Toradol but she says it causes a bad migraine she does not want to take that. I did say it did not thinks that she was a candidate for recurrent narcotic pain medicine Patient tells me she had prednisone and azithromycin and albuterol at the outside hospital she got prescriptions for all of those she does not need any more prescriptions for those. I recommended take those medications return precautions discussed gradual return to activity follow-up slow improvement in symptoms as expected Dragon Disclaimer Dragon Disclaimer This electronic medical record was generated, in whole or in part, using a voice recognition dictation system. Departure Departure Impression: Primary Impression: Bronchitis Disposition: 01 HOME, SELF-CARE Condition: STABLE Referrals: NO PCP (PCP) HAM GARCIA MD Aug 30, 2019 21:02
--- NOTE | 2019-08-30 21:07 | RAD ---
Single view chest dated 08/30/2019: Comparison made to 08/31/2017 Clinical Indication: Shortness of breath. Findings: Single upright portable exam of the chest was performed. Heart size and mediastinal contours are within normal limits given technique. The lungs are clear without evidence of focal consolidation. Vascular interstitium is within normal limits. Impression:: Negative portable chest. Electronically signed by: Grant Méndez MD (08/30/2019 9:04 PM) [facility]
[2019-08-30 21:14] LABS: BASO % 0 % (0-3); EOS % 0 % (0-3); HEMATOCRIT 33.3 % (36.0-47.0); HEMOGLOBIN 11.4 g/dL (12.0-15.5); LYMPH # 0.7 x10^3/uL (1.0-4.8); LYMPH % 7 % (24-48); MEAN CORPUSCULAR HEMOGLOBIN 31 pg (25-35); MEAN CORPUSCULAR HGB CONC 34 g/dL (31-37); MEAN CORPUSCULAR VOLUME 89 fL (79-100); MONO # 0.2 x10^3/uL (0.0-1.1); MONO % 2 % (0-9); NEUT # 9.1 x10^3/uL (1.8-7.7); NEUT % 91 % (31-73); PLATELET COUNT 270 x10^3/uL (140-400); RED BLOOD COUNT 3.74 x10^6/uL (3.50-5.40); RED CELL DISTRIBUTION WIDTH 12.9 % (11.5-14.5)
[2019-08-30 21:26] VITALS: BP 156/69
[2019-08-30 21:27] LABS: CALCIUM 8.5 mg/dL (8.5-10.1); CREATININE 0.9 mg/dL (0.6-1.0); GFR 71.3; POTASSIUM 3.3 mmol/L (3.5-5.1)
[2019-08-30 21:32] LABS: % LYMPHS 3 % (24-48); % MONOS 1 % (0-10); % SEGS 96 % (35-66); PLT ESTIMATE ADEQUATE (ADEQUATE)
[2019-08-30 21:34] LABS: ALBUMIN 3.1 g/dL (3.4-5.0); ALBUMIN/GLOBULIN RATIO 0.8 (1.0-1.7); TOTAL BILIRUBIN 0.2 mg/dL (0.2-1.0); TOTAL PROTEIN 6.9 g/dL (6.4-8.2)
== END 2019-08-30 21:55 | disposition home or self-care (01) ==
LOC: ER 20:18
DX: J40 Bronchitis, not specified as acute or chronic (principal); I10 Essential (primary) hypertension; G43.909 Migraine, unspecified, not intractable, without status migrainosus; Z88.1 Allergy status to other antibiotic agents; Z88.8 Allergy status to other drugs, medicaments and biological substances
CPT/HCPCS: 36415; 71045; 80053; 83880; 84484; 84702; 85007; 85025; 85379; 94644; 99285; J7613

== ENCOUNTER 2020-07-04 16:12 | Emergency (ER) | payer SELFPAY ==
[~2020-07-04] VITALS: Ht 154.9 cm; Wt 103.4 kg
[2020-07-04] MEDS ORDERED: HYDROcodone/APAP 5/325MG 1 TAB TABLET PO ONE (17:15)
--- NOTE | 2020-07-04 17:50 | RAD ---
PROCEDURE: KNEE RIGHT 3V STUDY DATE: 07/04/2020 CLINICAL INDICATION / HISTORY: Reason: right knee pain/swelling x1 day. nki / Spl. Instructions: / History: . TECHNIQUE: AP, lateral, and oblique views of the right knee. COMPARISON: None FINDINGS: The osseous structures are intact. The articular surfaces are smooth. The joint space is maintained. No intra-articular loose bodies. The alignment is within normal limits. The soft tissues are unremarkable. No obvious joint effusion. No radio-opaque foreign bodies are identified. IMPRESSION: No fracture or dislocation is identified. Electronically signed by: Candice Linares MD (07/04/2020 5:48 PM) [id number]
--- NOTE | 2020-07-04 18:35 | PHYS DOC ---
Past Medical History Past Medical History: Hypertension Additional Past Medical Histor: RIGHT KNEE INJURY, PANIC DISORDER, PTSD Past Surgical History: Cholecystectomy, Tubal ligation, Other Additional Past Surgical Histo: 2001-D&C, CYST REMOVAL ON TAILBONE Smoking Status: Current Every Day Smoker Additional Information: 1PPD Alcohol Use: Rarely Drug Use: None General Adult EDM: Chief Complaint: KNEE INJURY HPI: HPI: Patient is a 34 year old female who presents to the ED today complaining of 10 out of 10 right knee pain that began this morning at 3 AM. Patient denies any injury. She states she feels the knee is swollen. She states she tried taking Tylenol thousand 18 as well as ibuprofen with no relief. She says the pain is worse on range of motion. Describes the pain as sharp and constant. Review of Systems: Review of Systems: Constitutional: Denies fever or chills. [] : Denies dysuria. [] Musculoskeletal: Reports right knee pain Integument: Denies rash. [] Neurologic: Denies headache, focal weakness or sensory changes. [] Psychiatric: Denies depression or anxiety. [] Heart Score: Risk Factors: Risk Factors: DM, Current or recent (<one month) smoker, HTN, HLP, family hi story of CAD, obesity. Risk Scores: Score 0 - 3: 2.5% MACE over next 6 weeks - Discharge Home Score 4 - 6: 20.3% MACE over next 6 weeks - Admit for Clinical Observation Score 7 - 10: 72.7% MACE over next 6 weeks - Early Invasive Strategies Current Medications: Current Medications Medications (Trade) Dose Ordered Sig/Shashi Start Time Stop Time Status Last Admin Dose Admin Acetaminophen/ Hydrocodone Bitart (Lortab 5/325) 1 tab 1X ONCE 07/04/20 17:15 07/04/20 17:16 DC 07/04/20 17:13 1 TAB Allergies: Allergies: Allergies Coded Allergies Type Severity Reaction Last Updated Verified amoxicillin Adverse Reaction Intermediate OTHER 01/19/17 Yes clavulanic acid Adverse Reaction Intermediate Nausea and Vomiting 01/19/17 Yes diclofenac Adverse Reaction Intermediate OTHER 01/19/17 Yes ketorolac Adverse Reaction Intermediate Headache 07/04/20 Yes Physical Exam: PE: Constitutional: Well developed, well nourished, no acute distress, non-toxic appearance. [] Skin: Warm, dry, no erythema, no rash. [] Back: No tenderness, no CVA tenderness. [] Extremities: Bilateral knees were examined, there is no obvious edema in either knee. Right knee with no obvious ecchymosis or bruising. The patient is refusing range of motion stating it hurts. +2 right pedal pulse. Cap refill less than 2 seconds the right lower extremity. Neurologic: Alert and oriented X 3, normal motor function, normal sensory function, no focal deficits noted. [] Psychologic: Affect normal, judgement normal, mood normal. [] Current Patient Data: Vital Signs: Vital Signs Date Time Temp Pulse Resp B/P (MAP) Pulse Ox O2 Delivery O2 Flow Rate FiO2 07/04/20 17:13 20 Room Air 07/04/20 16:38 97.8 105 177/102 (127) 96 97.8 EKG: EKG: [] Radiology/Procedures: Radiology/Procedures: []PROCEDURE: KNEE RIGHT 3V PROCEDURE: KNEE RIGHT 3V STUDY DATE: 07/04/2020 CLINICAL INDICATION / HISTORY: Reason: right knee pain/swelling x1 day. nki / Spl. Instructions: / History: . TECHNIQUE: AP, lateral, and oblique views of the right knee. COMPARISON: None FINDINGS: The osseous structures are intact. The articular surfaces are smooth. The joint space is maintained. No intra-articular loose bodies. The alignment is within normal limits. The soft tissues are unremarkable. No obvious joint effusion. No radio-opaque foreign bodies are identified. IMPRESSION: No fracture or dislocation is identified. Electronically signed by: Aston Linares MD (07/04/2020 5:48 PM) [id number] DICTATED and SIGNED BY: ASTON LINARES MD DATE: 07/04/20 1748 Course & Med Decision Making: Course & Med Decision Making Pertinent Labs and Imaging studies reviewed. (See chart for details) This is a 34-year-old female patient presenting to the ED today with right knee pain that began this morning, no known injury. Right knee x-rays interpreted by radiologist are negative for any acute findings. Discharge to home. Provided Ortho for follow-up. Ice elevation encouraged Dragon Disclaimer: Dragon Disclaimer: This electronic medical record was generated, in whole or in part, using a voice recognition dictation system. Departure Departure Impression: Primary Impression: Right knee pain Qualified Codes: M25.561 - Pain in right knee Disposition: 01 HOME, SELF-CARE Condition: STABLE Referrals: NO PCP (PCP) KYLAH TOMLIN II, MD Follow-up in 1 to 2 weeks Patient Instructions: Knee Pain, [id number] Additional Instructions: You were evaluated in the emergency room for right knee pain, your right knee x- rays are negative for any acute findings. Follow-up with the provided ortho pedic doctor in the next 7 days. Ice elevate the extremity, you can wrap the extremity with an Kalia bandage as tolerated. Justicifation of Admission Dx: Justifications for Admission: Justification of Admission Dx: N/A LISA GUAMAN APRN Jul 04, 2020 18:34
[2020-07-04 18:45] VITALS: BP 165/99
== END 2020-07-04 18:45 | disposition home or self-care (01) ==
LOC: ER 16:12
DX: M25.561 Pain in right knee (principal); I10 Essential (primary) hypertension; F17.200 Nicotine dependence, unspecified, uncomplicated; Z90.49 Acquired absence of other specified parts of digestive tract; Z98.51 Tubal ligation status; Z98.890 Other specified postprocedural states
CPT/HCPCS: 73562; 99283